=== PATIENT | female | born 1975 | race Caucasian/White ===

== ENCOUNTER → 2018-01-22 12:38 | Outpatient (CLI) | payer OTHER, SELFPAY ==
--- NOTE | 2018-01-22 | DI.MRI.S_ITS ---
PROCEDURE: MR BRAIN (IAC) WWO CON INDICATIONS: LEFT SENSORINEURAL HEARING LOSS/TINNITUS TECHNIQUE: Noncontrast sagittal T1 spin echo, axial FLAIR, axial gradient echo, axial diffusion and ADC through the brain. Axial thin-slice 3D CISS, coronal TruFISP, axial T1 spin echo with fat saturation through the internal auditory canals. After the administration of contrast, thin slice axial and coronal T1 spin echo with fat saturation through the internal auditory canals, and axial T1 spin echo with fat saturation through the brain. COMPARISON: None. FINDINGS: Image quality: Excellent. Cerebellopontine angles: No cerebellopontine angle masses. The inner ear structures appear normally formed. No suspicious enhancement in the internal auditory canal or along the courses of the 7th and 8th cranial nerves. No caden vascular loops are seen into the internal auditory canals. CSF spaces: Ventricles are normal in size and shape. No extra-axial fluid collections. Basal cisterns are patent. Brain: No intracranial bleeds or mass effects. Martinez-white matter interface is intact. No abnormal intracranial enhancement. Diffusion weighted images demonstrate no acute ischemic insults. Brainstem appears normal. Normal intravascular flow voids are present. Skull and face: Calvarial marrow signal is normal. Orbits appear normal. Sinuses: Mild mucosal thickening can be seen involving the right maxillary sinus. Minimal to mild mucosal thickening is seen elsewhere within the paranasal sinuses. No abnormal fluid is seen within the mastoid air cells or within the middle ear cavities. IMPRESSION: No significant abnormality is seen. Specifically, no masses or abnormal enhancement are seen within the cerebellopontine angle cisterns or within the internal auditory canals. Dictated by: Wiliam Li M.D. on 01/22/2018 at 13:05 Approved by: Wiliam Li M.D. on 01/22/2018 at 13:07
== END ==
PROVIDERS: Family Provider Family Medicine; PCP Family Medicine; Visit Provider Otolaryngology Facial Plastic Surgery
DX: H90.5 Unspecified sensorineural hearing loss (principal); H93.12 Tinnitus, left ear
CPT/HCPCS: 70553

== ENCOUNTER → 2018-06-20 12:25 | Outpatient (CLI) | payer OTHER, SELFPAY ==
--- NOTE | 2018-06-20 | DI.MG.S_ITS ---
BILATERAL DIGITAL SCREENING MAMMOGRAM 3D/2D WITH CAD: 06/20/2018 CLINICAL: Routine screening. Family history of breast cancer. Comparison is made to exams dated: 03/18/2017 mammogram, 02/16/2016 mammogram, and 01/24/2015 mammogram - [facility]. The tissue of both breasts is heterogeneously dense. This may lower the sensitivity of mammography. Current study was also evaluated with a Computer Aided Detection (CAD) system. There is 0.8 cm oval equal density focal asymmetry with a circumscribed margin in the left breast at 6 o'clock middle depth. No other significant masses, calcifications, or other findings are seen in either breast. IMPRESSION: INCOMPLETE: NEEDS ADDITIONAL IMAGING EVALUATION The 0.8 cm oval equal density focal asymmetry in the left breast is indeterminate. Mediolateral and spot compression views as well as additional views with possible ultrasound are recommended. This exam was interpreted at Station ID: [id number]. NOTE: For mammograms, a report in lay terms will be sent to the patient. Approximately 15% of breast malignancies will not be visualized mammographically. In the management of a palpable breast mass, a negative mammogram must not discourage biopsy of a clinically suspicious lesion. Electronically Signed By: Sivakumar vallejo/zachariah:06/20/2018 14:52:27 copy to: Wagner Brennan letter sent: Additional Imaging Needed ACR BI-RADS Category 0: Incomplete [id number]
== END ==
PROVIDERS: Family Provider Nurse Practitioner Family; PCP Family Medicine; Visit Provider Family Medicine
DX: Z12.31 Encounter for screening mammogram for malignant neoplasm of breast (principal); Z80.3 Family history of malignant neoplasm of breast
CPT/HCPCS: 77063; 77067

== ENCOUNTER → 2018-07-23 12:45 | Outpatient (CLI) | payer OTHER, SELFPAY ==
--- NOTE | 2018-07-23 | DI.MG.S_ITS ---
UNILATERAL LEFT DIGITAL DIAGNOSTIC MAMMOGRAM 3D/2D WITH ADDITIONAL VIEWS: 07/23/2018 CLINICAL: Additional evaluation requested from prior study. Comparison is made to exams dated: 06/20/2018 mammogram, 03/18/2017 mammogram, and 02/16/2016 mammogram - [facility]. The tissue of left breast is heterogeneously dense. This may lower the sensitivity of mammography. Previously identified 0.8 cm oval equal density focal asymmetry with a circumscribed margin in the left breast at 6 o'clock middle depth on comparison screening mammograms persists with additional views. There is a stable 0.5 cm oval equal density mass in the upper outer left breast at anterior depth that is stable dating back to comparison mammogram of 02/16/2016. No other significant masses, calcifications, or other findings are seen in the breast. IMPRESSION: INCOMPLETE: NEEDS ADDITIONAL IMAGING EVALUATION Previously identified 0.8 cm oval equal density focal asymmetry with a circumscribed margin in the left breast at 6 o'clock middle depth on comparison screening mammograms persists with additional views. A targeted ultrasound is recommended for further evaluation, and will be performed immediately following this exam. This exam was interpreted at Station ID: [id number]. NOTE: For mammograms, a report in lay terms will be sent to the patient. Approximately 15% of breast malignancies will not be visualized mammographically. In the management of a palpable breast mass, a negative mammogram must not discourage biopsy of a clinically suspicious lesion. Electronically Signed By: Carlos Savage M.D. ecl/:07/23/2018 13:24:00 copy to: Lena Mcfadden letter sent: Additional Imaging Needed ACR BI-RADS Category 0: Incomplete [id number]
--- NOTE | 2018-07-23 | DI.US.S_ITS ---
LIMITED ULTRASOUND OF LEFT BREAST: 07/23/2018 CLINICAL: Patient returns today to evaluate a density in the left breast. Comparison is made to exams dated: 07/23/2018 mammogram, 06/20/2018 mammogram, 03/18/2017 mammogram, 02/16/2016 mammogram, 02/08/2015 ultrasound, and 02/08/2015 mammogram - [facility]. Real-time and Doppler ultrasound of the left breast 4-5 o'clock region were performed. Martinez scale images of the real-time examination were reviewed. There is 0.7 cm x 0.5 cm x 0.4 cm taller than wide oval mass with a circumscribed margin in the left breast at 4:30 position 4 cm from the nipple. This oval mass is hypoechoic. Color flow imaging demonstrates that there is no vascularity present. IMPRESSION: SUSPICIOUS OF MALIGNANCY The 0.7 cm x 0.5 cm x 0.4 cm taller than wide oval mass in the left breast is at a low suspicion for malignancy. An ultrasound guided biopsy is recommended. These results and recommendations were discussed with the patient at the time of the exam by the [facility] Radiologist Dr. Virgil Todd in person. This exam was interpreted at Station ID: [id number]. Electronically Signed By: Carlos Savage M.D. ecl/:07/24/2018 08:57:31 copy to: Lena Mcfadden letter sent: Biopsy Required Ultrasound BI-RADS: 4a Suspicious abnormality - low suspicion for malignancy
== END ==
PROVIDERS: Family Provider Nurse Practitioner Family; PCP Family Medicine; Visit Provider Family Medicine
DX: R92.8 Other abnormal and inconclusive findings on diagnostic imaging of breast (principal); N63.21 Unspecified lump in the left breast, upper outer quadrant; N63.23 Unspecified lump in the left breast, lower outer quadrant
CPT/HCPCS: 76642; 77065; G0279

== ENCOUNTER → 2018-08-27 12:39 | Outpatient (CLI) | payer OTHER, SELFPAY ==
--- NOTE | 2018-08-27 | DI.MG.S_ITS ---
UNILATERAL LEFT DIGITAL DIAGNOSTIC MAMMOGRAM POST-NEEDLE BIOPSY: 08/27/2018 CLINICAL: Left breast mass. Comparison is made to exams dated: 07/23/2018 mammogram, 06/20/2018 mammogram, and 03/18/2017 mammogram - [facility]. The tissue of left breast is heterogeneously dense. This may lower the sensitivity of mammography. There is a marker clip in the appropriate position in the left breast at 4 o'clock posterior depth. This marker clip placement is at the biopsy site. IMPRESSION: POST PROCEDURE MAMMOGRAM FOR MARKER PLACEMENT There was a successful marker clip placement in the left breast posterior depth. This exam was interpreted at Station ID: [id number]. NOTE: For mammograms, a report in lay terms will be sent to the patient. Approximately 15% of breast malignancies will not be visualized mammographically. In the management of a palpable breast mass, a negative mammogram must not discourage biopsy of a clinically suspicious lesion. Electronically Signed By: Jaylon Weinstein jl/:08/27/2018 15:02:54 copy to: Lena Mcfadden ACR BI-RADS Category Post-procedure mammogram for marker placement
--- NOTE | 2018-08-27 | DI.US.S_ITS ---
ULTRASOUND GUIDED BIOPSY LEFT BREAST USING VACUUM DEVICE WITH MARKING DEVICE INSERTED AND POST DIGITAL MAMMOGRAPHIC IMAGIN08/27/2018 CLINICAL: Left breast mass. PATIENT CONSENT: Risks (minor bleeding, infection, vasovagal reaction and repeat procedure), benefits and alternatives were explained to the patient and written informed consent was obtained. Correlation is made to exams dated: 07/23/2018 ultrasound, 07/23/2018 mammogram, and 06/20/2018 mammogram - [facility]. An ultrasound guided biopsy using real-time ultrasound was performed for the mass located in the left breast at 4:30 position 4 cm from the nipple. The skin was prepped in the usual manner. The abnormality was approached from the lateral aspect. A biopsy needle was placed adjacent to the abnormality under ultrasound guidance. Once the needle was documented to be in the correct location, a specimen was obtained using the Mammotome biopsy system. A clip was inserted into the biopsy cavity. Post procedure digital mammographic imaging was obtained. The specimen was sent to the laboratory for pathological analysis. IMPRESSION: ULTRASOUND GUIDED BIOPSY BENIGN Ultrasound guided biopsy of the mass in the left breast at 4:30 position 4 cm from the nipple was successful with no apparent post procedure complications. Final pathology per pathollogist Dr. Rosa Isela Luis identified benign breast tissue with changes suggestive of benign cyst wall/lining, negative for atypical hyperplasia, in situ, or invasive carcinoma. These results are concordant with imaging. A follow-up ultrasound in 6 months is recommended. These results will be communicated to the patient's referring provider. This exam was interpreted at Station ID: [id number]. Jaylon johnson,[facility]/:09/10/2018 09:23:16 copy to: Lena Mcfadden
--- NOTE | 2018-08-27 | PATH_ITS ---
[facility] Accession Number: [id number] . 01 Material submitted: . LEFT BREAST MASS . 01 Clinical history: . A: LEFT BREAST MASS 4:30 O'CLOCK 4CM FROM NIPPLE . 02 Diagnosis: Left Breast, 4:30 o'clock, 4 cm from Nipple, Core Needle Biopsies: Benign breast tissue with changes suggestive of benign cyst wall/lining. Negative for atypical hyperplasia, in situ or invasive carcinoma. MRV/08/29/2018 . 02 Comment: As part of routine quality reviewer, Dr. Rosales also reviewed this case and agrees with the diagnosis. Additional deeper levels were examined. . 02 Electronically signed: . Rosa Isela Luis MD, Pathologist NPI- [id number] . 01 Gross description: . Received one formalin-filled container labeled with the patient's name and designated left breast mass 4:30 o'clock 4 cm from nipple. The specimen is received with a plastic filter in the container, sample loose in container and consists of two yellow-singleton, rough, partial cylindrical-shaped portions of tissue with an average diameter of 0.2-0.3 cm and range in length from 0.9 cm to 1.6 cm. The specimen is entirely submitted in one cassette. Collection date: 08/27/2018. Collection time: 13:50 per container. Total fixation time: 12 hours, up to 24. ([id number]) /FRR . 02 Pathologist provided ICD-10: N63.20 . 02 CPT . 981997 Performed at: 01 [facility] [address] [place] [address], [place], [place] [id number] MD Sivakumar Alatorre MD Phone: [phone] Performed at: 02 [facility] [address] [place] [id number] MD Rosa Isela Luis MD Phone: [phone]
== END ==
PROVIDERS: Family Provider Nurse Practitioner Family; PCP Family Medicine; Visit Provider Family Medicine
DX: N63.23 Unspecified lump in the left breast, lower outer quadrant (principal)
CPT/HCPCS: 19083; 77065

== ENCOUNTER → 2018-12-10 12:07 | Outpatient (CLI) | payer OTHER, SELFPAY ==
--- NOTE | 2018-12-10 | DI.US.S_ITS ---
PROCEDURE: US PELVIC COMPLETE INDICATIONS: DYSFUNCTIONAL UTERINE BLEEDING TECHNIQUE: Real-time scanning was performed of the pelvic organs, with image documentation. Additional endovaginal scanning was necessary due to incomplete visualization of the adnexal and endometrial structures by transabdominal scanning. COMPARISON: None. FINDINGS: Transabdominal scanning: Limited scanning through the kidneys shows no hydronephrosis. No pathologic free abdominal or pelvic fluid. Endovaginal scanning: Uterus: Uterus is normal in size at 7.9 x 4.3 x 5.8 cm. The endometrium measures 16 mm in combined thickness. Ovaries: The right ovary measures 1.8 by 1 by 2.1 cm. immediately posterior to the right ovary, there is a hypoechoic nonvascular structure that measures 2 x 1.1 x 3 cm. The left ovary is not seen. No left adnexal masses. IMPRESSION: The endometrial stripe measures 16 mm, which is near the upper limits of normal. There is a 3 cm hypoechoic structure seen adjacent to the right ovary. Differential diagnosis includes an adnexal cyst. A process related to the fallopian tube, including pyosalpinx/hydrosalpinx is also possible. Further evaluation is suggested, either with a pelvic CT, a gynecological protocol MRI (assuming that there is no contraindication), or a followup ultrasound in 6 weeks, depending upon clinical suspicion. Dictated by: Wiliam Li M.D. on 12/10/2018 at 11:59 Approved by: Wiliam Li M.D. on 12/10/2018 at 12:02
== END ==
PROVIDERS: Family Provider Nurse Practitioner Family; PCP Family Medicine; Visit Provider Nurse Practitioner Family
DX: N93.8 Other specified abnormal uterine and vaginal bleeding (principal)
CPT/HCPCS: 76830; 76856

== ENCOUNTER → 2018-12-12 10:57 | Outpatient (CLI) | payer OTHER, SELFPAY ==
--- NOTE | 2018-12-12 | DI.CT.S_ITS ---
PROCEDURE: CT PELVIS W CON INDICATIONS: PELVIC MASS FOUND ON US. Uterine bleeding. Question right hydrosalpinx on ultrasound. TECHNIQUE: After the administration of oral contrast and intravenous contrast, 5 mm thick sections acquired from the iliac crests to the symphysis. 5 mm thick coronal and sagittal reformats were acquired. For radiation dose reduction, the following was used: automated exposure control, adjustment of mA and/or kV according to patient size. COMPARISON: [facility], [place], US PELVIC COMPLETE, 12/10/2018, 12:19. FINDINGS: Image quality: Excellent. Peritoneum and bowel: Contrast enhanced bowel loops demonstrate normal wall thickness and caliber. No free fluid or air. No abscess cavity.4 Genitourinary: Bladder wall thickness is normal. Nodes and vessels: No iliac, pelvic, or inguinal adenopathy. Iliac vessels demonstrate normal size and enhancement. Bones: No suspicious bony lesions. Miscellaneous: No inguinal hernias. Uterus is unremarkable. No adnexal masses. No hydrosalpinx identified. IMPRESSION: Unremarkable CT pelvis with contrast. Dictated by: Dominic Soriano M.D. on 12/12/2018 at 12:23 Approved by: Dominic Soriano M.D. on 12/12/2018 at 12:27
== END ==
PROVIDERS: Family Provider Nurse Practitioner Family; PCP Family Medicine; Visit Provider Nurse Practitioner Family
DX: N93.9 Abnormal uterine and vaginal bleeding, unspecified (principal); R19.00 Intra-abdominal and pelvic swelling, mass and lump, unspecified site
CPT/HCPCS: 72193; Q9967

== ENCOUNTER → 2019-02-18 12:05 | Outpatient (CLI) | payer OTHER, SELFPAY ==
--- NOTE | 2019-02-18 | DI.US.S_ITS ---
ULTRASOUND OF LEFT BREAST: 02/18/2019 CLINICAL: 6 month follow-up biopsy. Comparison is made to exams dated: 08/27/2018 ultrasound biopsy, 08/27/2018 mammogram, 07/23/2018 ultrasound, 07/23/2018 mammogram, 06/20/2018 mammogram, and 03/18/2017 mammogram - [facility]. Real-time ultrasound of the left breast was performed on the areas of interest. Martinez scale images of the real-time examination were reviewed. The oval mass with a circumscribed margin in the left breast at 4 o'clock posterior depth 4 cm from the nipple is no longer seen. A biopsy clip is present. IMPRESSION: BENIGN There is no sonographic evidence of malignancy. A 1 year screening mammogram is recommended. This exam was interpreted at Station ID: [id number]. Electronically Signed By: Yen Gabriel M.D. lk/:02/19/2019 14:17:05 copy to: Lena Mcfadden letter sent: Normal Exam Ultrasound BI-RADS: 2 Benign
== END ==
PROVIDERS: Family Provider Nurse Practitioner Family; PCP Family Medicine; Visit Provider Nurse Practitioner Family
DX: R92.8 Other abnormal and inconclusive findings on diagnostic imaging of breast (principal)
CPT/HCPCS: 76642

== ENCOUNTER 2019-06-22 12:22 | Day surgery (SDC) | payer OTHER, SELFPAY ==
[2019-06-22] VITALS (14 sets, daily range): BP systolic 93–145; BP diastolic 45–85; PULSE 56–81; RESP 12–21; TEMP 36.1–37.4; O2SAT 95–100; BMI 25.4
--- NOTE | 2019-06-22 | PATH_ITS ---
[facility] Accession Number: [id number] . 01 Material submitted: . uterus - UTERUS AND BILATERAL FALLOPIAN TUBES . 02 Diagnosis: Uterus and Bilateral Fallopian Tubes, Hysterectomy and Bilateral Salpingectomy (Morcellated Specimen, Aggregate Weight 102 grams): Weakly proliferative endometrium; negative for glandular hyperplasia, cytologic atypia, and malignancy. Myometrium with benign glandular elements, favor involvement by adenomyosis. Please see comment. Fimbriated fallopian tube with no significant histomorphologic abnormality. Nonfimbriated fallopian tube with no significant histomorphologic abnormality. MRV 06/26/2019 1408 Local . 02 Comment: There are benign glandular structures present within the myometrium. The depth of extension is difficult to assess in the separate and possibly tangential fragments and the presence of an adenomyoma cannot be completely excluded. There is no evidence of atypia or malignancy. . 02 Electronically signed: . Annie Rosales MD, Pathologist NPI- [id number] . 01 Gross description: . Received in formalin, labeled uterus and bilateral fallopian tubes, is a morcellated uterus (102 grams, 9.5 x 9.0 x 4.2 cm in aggregate), a fimbriated fallopian tube (length-4.5 cm, diameter-0.4 cm), and a non-fimbriated fallopian tube (length-2.5 cm, diameter-0.5 cm). The cervix and ovaries are absent. The specimen cannot be oriented and the endometrium and myometrium cannot be grossly measured. The parenchyma is arciniega with multiple focally white whorled areas with no definitive nodules identified. The serosa is arciniega smooth and shiny. The fallopian tubes have singleton-purple smooth and shiny serosa and arciniega focally dilated lumens. Section code: (A1-A3) parenchyma, automotive sales representative; (A4) fimbriated fallopian tube, automotive sales representative serial sections; (A5) fimbria, bivalved, entirely submitted; (A6) nonfimbriated fallopian tube, automotive sales representative serial sections. ([id number]) /[facility] 06/24/2019 1641 Local . 02 Pathologist provided ICD-10: N80.0 . 02 CPT . 948640 Performed at: 01 [facility] [address] [id number] MD Sivakumar Alatorre MD Phone: [phone] Performed at: 02 [facility] [address] [address] [place], [place] [id number] MD Rosa Isela Luis MD Phone: [phone]
[2019-06-22] MEDS: LACTATED RINGERS 1,000 ML 100 ML IV ×2 (12:52→17:59)
--- NOTE | 2019-06-22 13:20 | PM.PREOP ---
Pre-operative Note Interval Note History & Physical reviewed/Exam performed by Physician: Yes Changes to H&P: No H&P completed within 30 days and has changed as indicated here:: see 06/17/19 out patient visit
[2019-06-22] MEDS: CEFAZOLIN 2 GM/100 ML FROZ.PIGGY IV (14:40)
--- NOTE | 2019-06-22 15:11 | SUR.OPER ---
Lithotomy on padded OR bed. New Alluwe Pad Positioner under torso. Head on pillow, arms padded and tucked at sides. Legs secured in padded yellow fins stirrups.
[2019-06-22] MEDS: ROPIVACAINE 0.2% PF 2 MG/ML 10ML AMP 20 ML INJ (15:25)
[2019-06-22] MEDS: BUPIVACAINE 0.5% W/ EPI (PF) VIAL 30 ML INJ (15:25)
--- NOTE | 2019-06-22 16:07 | P.OP_ITS ---
Operative Date/Time/Diagnoses Date of procedure: 06/22/19 Time of procedure: 16:07 Pre-op diagnosis: Dysmenorrhea and menorrhagia Post-op diagnosis: same Procedure & Clinicians Procedure: Laparoscopic supracervical hysterectomy with bilateral salpingectomies Same procedure as scheduled: Yes Indications: Menorrhagia and dysmenorrhea Surgeon: Danica Sinclair Principal Automation Engineer: Elver Delgadillo Yes if Unassisted: No Anesthesia Type: General Operative Notes Findings: Normal appearing uterus with some scarring from her prior section. Bilateral tubal ligation with swelling of the proximal fallopian tube segment likely the cause of the patient's pain. Normal ovaries bilaterally. No internal hernias. No endometriosis. Normal appearing bowel surface and liver edge. Closure Type: primary Specimen(s): other (Uterus above the level of the bladder and bilateral fallopian tubes) Estimated Blood Loss (mL): 25 Blood products transfused: none Procedure in detail: Patient is brought to the operating room where she underwe nt general anesthesia and placed in low yellowfin stirrups. She was prepped and draped in the usual sterile fashion. A check list was reviewed with the staff in the room prior to beginning of the case. Patient had pulsatile stockings in place and functional. 2 g of Ancef were in prior to beginning of the case.. A Sutherland catheter was placed. A single-tooth tenaculum was placed on the anterior lip of the cervix and the cervix dilated to a #6 Hegar dilator. The uterine manipulator was placed through the cervix into the uterus with the balloon inflated with 3 mL of air. The area of the umbilical incision and the 5 mm right and left lower quadrant incisions were injected with Marcaine. An incision was made with scalpel. The verries needle was placed into the abdomen and confirmed in the appropriate place with withdrawal on a syringe and then free flow of fluid down through the needle. The abdomen was insufflated with CO2. The needle was removed and a 5 mm trocar placed without difficulty. There did not appear to be any damage is placement of the trocar. The right and left lower quadrant incisions were made with the scalpel and the trochars placed without damage to internal structures. The PK forceps were used to cauterize the mesosalpinx followed by the round ligaments on both sides. Sequential bites were taken down the broad ligaments. The uterine arteries were cauterized. An incision was made above the level bladder pushing the bladder away from the cervix. The BAILEE loop was placed around the uterus and the uterus was amputated above the level of the bladder. Bleeding was controlled with the PK forceps. The PK forceps were used to cauterize in the endocervical canal. A supracervical incision was made and an 11 mm port placed. A 15 mm Endo Catch bag was placed in the abdomen. The uterus, tubes and ovaries were placed in the bag and brought up through the suprapubic port site. The Nasim O was placed. The uterus was hand morselized. The abdomen was reinsufflated and adequate hemostasis was noted. The trochars were removed and the CO2 allowed escape from the abdomen. The fascia layer of the suprapubic site was repaired with 0 Polysorb suture. Skin was closed with 4-0 Monocryl suture at the suprapubic site and the other 3 sites. The patient went to recovery room in good condition. Counts of instruments and sponges were correct. Complications: none Post-operative Condition: stable Disposition: observation Plan for aftercare: Likely home in morning if patient is stable
[2019-06-22] MEDS: HYDROMORPHONE 2 MG INJ 0.5 MG IV ×3 (16:09→16:29)
[2019-06-22] MEDS: OXYCODONE/ACETAMINOPHEN 5/325 TABLET 1 TAB PO (16:28)
--- NOTE | 2019-06-22 16:41 | SUR.PHASEI ---
Assumed care. VS stable. Reported pain 4/10 in low abd.
--- NOTE | 2019-06-22 16:56 | SUR.PHASEI ---
Report called to Nessa
--- NOTE | 2019-06-22 17:11 | SUR.PHASEI ---
Pt transferred to the floor with belongings bag. VS stable. Sero-sang fluid to mid abd drsgs, others clean and dry. IV saline locked. Report given to Nessa.
[2019-06-22] MEDS: KETOROLAC 30 MG/ML VIAL IV (17:59)
[2019-06-22] MEDS: HYDROCODONE/ACET 5/325 TABLET 2 TAB PO (20:29)
--- NOTE | 2019-06-22 22:13 | PC.NURSE ---
Pt arrived to in stable condition. Alert/oriented. IV LR @ 100cc/hr into rihgt hand via pump w/om incidence. Four small dsg across abd. unbilicus and one below w/shadow drainage, other two CDI SCD on, Med @ 1810 w/toradol w/good relief Med 2030 w/ vicodin w/good relief. 1PA to BR. Stable post op course. Call light w/in reach, bed alarm on for pt sfety. Pt calls appropriately for assistance. Continue w/plan of care.
[2019-06-23] MEDS: HYDROCODONE/ACET 5/325 TABLET 2 TAB PO ×2 (03:00→09:09)
[2019-06-23] MEDS: LACTATED RINGERS 1,000 ML 100 ML IV (03:02)
[2019-06-23 04:10] VITALS: BP 129/73; PULSE 51; RESP 16; TEMP 36.4; O2SAT 97
--- NOTE | 2019-06-23 05:26 | PC.NURSE ---
Pt. VSS, lung sounds clear bilaterally. Pt has had some pain 3-4/10, 2 tabs norco given Q4. Pt denies nausea. SCD's are applied. Pt has LR&100 ml/hr running. Call light is in within reach.
[2019-06-23] MEDS: LEVOTHYROXINE 25 MCG TABLET PO (05:55)
[2019-06-23 08:00] VITALS: BP 122/60; PULSE 64; RESP 14; TEMP 36.9; O2SAT 98
--- NOTE | 2019-06-23 08:40 | PM.DS.1 ---
History of Present Illness History of Present Illness Date Patient Seen: 06/23/19 Time Patient Seen: 08:40 Chief complaint: [id number] [facility] *OPB* Narrative: Patient is status post laparoscopic supracervical hysterectomy with bilateral salpingectomy. Patient has appropriate amount of discomfort postop. She is urinating well. She is not nauseated. She is ambulatory. Discharge Providers Provider Discharge Date: 06/23/19 Primary care physician: BOGDAN Yu Discharge provider: Danica Sinclair MD Summary Hospital Course Discharge Diagnosis: Patient with dysmenorrhea and menorrhagia Hospital Course: Patient underwent a laparoscopic supracervical hysterectomy with bilateral salpingectomy. She is doing well postoperative. Status at Discharge Cognitive/behavioral status at discharge: oriented Functional status at discharge: independent ambulation Overall status at discharge: patient is progressing back to baseline Time Spent with Patient Time spent: Less than 30 minutes Exam Vital Signs (past 8 hours): - 06/23/19 04:10 06/23/19 08:00 Temperature 97.6 F 98.5 F Pulse Rate 51 L 64 Respiratory Rate 16 14 Blood Pressure 129/73 122/60 Pulse Oximetry 97 98 Oxygen Delivery Method Room Air Oxygen Flow Rate 0 Narrative Exam Narrative: Abdomen is soft, with minimal tenderness. Her dressings show some old blood but no active bleeding. Extremities without edema and nontender. Discharge Plan Discharge Plan Patient Disposition: Home Discharge Med Rec/Prescriptions Prescriptions: Continued levothyroxine 25 mcg capsule 25 mcg PO DAILY RF: 0 hydrocodone-acetaminophen 5-325 mg tablet 2 tab PO Q4-6H PRN (Reason: pain) Qty: 30 RF: 0 Discontinued norgestimate-ethinyl estradiol 0.25-35 mg-mcg tablet 1 tab PO DAILY RF: 0 Follow up/Referrals: Danica Sinclair MD [Physician] - As previously scheduled (Patient is postop appointment is on 07/01/2019 at 3:45 p.m.) Discharge Orders: Discharge (Order); Ordered 06/23/19 Ordered By: Danica Sinclair Provider Discharge Instructions Diet: Regular Activity: Light activity for 1 week Skin/Wound/Dressing Care Report to your healthcare provider any signs of infection, such as:: chills, fever, increased pain and unusual redness Dressing: May remove Band-Aids later today, leave Steri-Strips in place may get wet just pat dry Discharge Data Primary Care Provider: Lena Mcfadden Attending Provider: Danica Sinclair Quality VTE Deep Vein Thrombosis/Pulmonary Embolism Present on Admission: No
--- NOTE | 2019-06-23 09:33 | PC.NURSE ---
0935 Pt to dc to home today, dc papers given to Pt/signed. Pt had PO pain meds this am w/good relief of post op site pain.
--- NOTE | 2019-06-23 13:55 | CM.DANOTE ---
DCP/Assessment: Reviewed chart. Patient admitted [facility] for elective hysterectomy performed on 06-23-19. Patient admitted as SDC. Surgery performed by Dr. Sinclair. Primary payor is 1)[employer]. PCP listed is Lena Mcfadden. Attempted to meet with patient this AM. Patient had already been discharged with no identified d/c planning needs. P: Home today. 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 No History Provided By Patient,Medical Record Prior Living Arrangements House Household Members spouse,children Type of transporation used prior to Drives own vehicle admit Independent with ADL's Yes Is patient alert and oriented? 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
== END 2019-06-23 11:05 | disposition home or self-care (01) ==
LOC: OR 12:24 → AC 12:25
PROVIDERS: PCP Nurse Practitioner Family; Visit Provider Specialist
PROC: 0UT94ZL Resection of Uterus, Supracervical, Percutaneous Endoscopic Approach (ICD-10-PCS; CPT 58541; principal; 2019-06-22 13:45)
DX: N80.0 Endometriosis of uterus (principal)
CPT/HCPCS: 58541; J0690; J1100; J1170; J1885; J2250; J2405; J2704; J2710; J2795; J3010

== ENCOUNTER → 2020-04-06 15:48 | Outpatient (CLI) | payer OTHER, SELFPAY ==
[2019-06-22 20:51] VITALS: BMI 25.4
--- NOTE | 2020-04-06 15:50 | DI.MG.S_ITS ---
BILATERAL DIGITAL SCREENING MAMMOGRAM 3D/2D WITH CAD: 04/06/2020 CLINICAL: Routine screening. Family history of breast cancer. Comparison is made to exams dated: 08/27/2018 mammogram, 07/23/2018 mammogram, 06/20/2018 mammogram, and 03/18/2017 mammogram - [facility]. The tissue of both breasts is heterogeneously dense. This may lower the sensitivity of mammography. Current study was also evaluated with a Computer Aided Detection (CAD) system. No significant masses, calcifications, or other findings are seen in either breast. There has been no significant interval change. IMPRESSION: NEGATIVE There is no mammographic evidence of malignancy. A 1 year screening mammogram is recommended. This exam was interpreted at Station ID: [id number]. NOTE: For mammograms, a report in lay terms will be sent to the patient. Approximately 15% of breast malignancies will not be visualized mammographically. In the management of a palpable breast mass, a negative mammogram must not discourage biopsy of a clinically suspicious lesion. Electronically Signed By: Curt Del Real M.D., jr/zachariah:04/06/2020 16:47:30 copy to: Lena Mcfadden letter sent: Normal Exam ACR BI-RADS Category 1: Negative 3341F
== END ==
PROVIDERS: PCP Nurse Practitioner Family; Referring Provider Student in an Organized Health Care Education/Training Program; Visit Provider Student in an Organized Health Care Education/Training Program
DX: Z12.31 Encounter for screening mammogram for malignant neoplasm of breast (principal); Z80.3 Family history of malignant neoplasm of breast
CPT/HCPCS: 77063; 77067

== ENCOUNTER → 2020-09-14 16:23 | Outpatient (CLI) | payer OTHER, SELFPAY ==
[2019-06-22 20:51] VITALS: BMI 25.4
== END ==
PROVIDERS: PCP Nurse Practitioner Family; Visit Provider Physician Assistant
DX: N34.3 Urethral syndrome, unspecified (principal)
CPT/HCPCS: 87086

== ENCOUNTER 2021-01-31 03:43 | Emergency (ER) | payer OTHER, SELFPAY ==
[2019-06-22 20:51] VITALS: BMI 25.4
[2021-01-31 03:58] VITALS: BP 122/72; PULSE 71; RESP 20; TEMP 36.8; O2SAT 100; BMI 23.6
--- NOTE | 2021-01-31 04:02 | ED.GENADULT ---
HPI - General Adult <Selena Celaya MD - Last Filed: 02/10/21 15:11> General Chief complaint: GI Bleed Stated complaint: bad hemorrhoids/blockage Time Seen by Provider: 01/31/21 04:01 History of Present Illness HPI narrative: 45-year-old woman with a history of hypothyroidism and hyperlipidemia presents with severe rectal pain. It has been increasing over the last 3 days in severe enough that she has been afraid to have a bowel movement. She notes that she has had hemorrhoids ever since she had twins a number of years ago. A typically she simply deals with it but does try to take Metamucil to keep her stool soft and will occasionally use [id number] preparations for hemorrhoidal pain. She notes no fevers, vomiting, headaches or upper abdominal pain. She also notes that she has been under quite a bit of stress with a [id number] who currently is on hospice and a son with multiple knee recent orthopedic issues. Related Data Home Medications Medication Instructions Recorded Confirmed levothyroxine 25 mcg capsule 25 mcg PO DAILY 02/11/19 09/14/20 atovstatin PO 09/14/20 09/14/20 Previous Rx's Medication Instructions Recorded ibuprofen 800 mg PO Q8H PRN #30 tab 01/31/21 Allergies Allergy/AdvReac Type Severity Reaction Status Date / Time INGREDIENT: NO KNOWN - NO Allergy Unknown Uncoded 09/14/20 16:32 KNOWN DRUG ALLERGY Review of Systems <Selena Celaya MD - Last Filed: 02/10/21 15:11> Review of Systems Narrative: Remainder of complete review of systems is otherwise unremarkable except for that included in the HPI. Patient History <Selena Celaya MD - Last Filed: 02/10/21 15:11> Medical History Anemia (~1996) Chicken pox Fractures UTI (urinary tract infection) Surgical History Anesthesia History of delivery (~05/2006) History of hysterectomy for benign disease (~06/2019) History of lumpectomy (~08/2010) Family History Father Cancer Social History household members: spouse and children Smoking Status: Former smoker Smoking Status: Former smoker Substance Use Type: does not use Exam <Selena Celaya MD - Last Filed: 02/10/21 15:11> Narrative Exam Narrative: General: Healthy appearing, significant distress, having difficulty sitting or standing because of perirectal pain. Able to give a complete and coherent history. Well-nourished well-developed HEENT: Moist mucous membranes, normal sclera with reactive pupils, Respiratory: Lungs are clear to auscultation, no wheezing no rales no rhonchi. Full and symmetrical air movement Cardiac: Regular rate and rhythm no murmurs no bruits Abdomen: Soft, nontender, good bowel tones, no flank pain Rectal: minor external hemrrhoidal tags. No obvious abscess ro cellulits, no perirectal fissure, significant anal sphincter spasm with internal exam and no significant thrombosed or internal hemorrhoids appreciated. There is a minor amount of red blood on my glove after the internal exam. Skin: Warm and dry, no rashes Neurologic: Grossly neurologically intact with no obvious asymmetries or abnormalities Extremities: No trauma, well perfused Psych: Cooperative, appropriate insight and affect Initial Vital Signs Initial Vital Signs: Vital Signs Temperature 98.2 F 01/31/21 03:58 Pulse Rate 71 01/31/21 03:58 Respiratory Rate 20 01/31/21 03:58 Blood Pressure 122/72 01/31/21 03:58 Pulse Oximetry 100 01/31/21 03:58 <Shane Brumfield DO - Last Filed: 01/31/21 07:26> Initial Vital Signs Initial Vital Signs: Vital Signs Temperature 98.2 F 01/31/21 03:58 Pulse Rate 71 01/31/21 03:58 Respiratory Rate 20 01/31/21 03:58 Blood Pressure 122/72 01/31/21 03:58 Pulse Oximetry 100 01/31/21 03:58 Course <Selena Celaya MD - Last Filed: 02/10/21 15:11> Orders Ordered: Discontinued Medications Hydromorphone HCl (Hydromorphone 0.5 Mg Inj) 0.5 mg IV Q15MIN PRN PRN Reason: Pain, Last Admin: 01/31/21 06:14 Dose: 0.5 mg Documented by: Admin: 01/31/21 05:17 Dose: 0.5 mg Documented by: Admin: 01/31/21 04:36 Dose: 0.5 mg Documented by: TUNG Hydromorphone HCl (Hydromorphone 0.5 Mg Inj) 0.5 mg IV Q15MIN PRN PRN Reason: Pain, Sodium Chloride (Normal Saline 0.9%) 1,000 mls @ 1,000 mls/hr IV BOLUS ONE Stop: 01/31/21 05:20 Last Infusion: 01/31/21 06:11 Dose: 0 mls/hr Documented by: Admin: 01/31/21 04:36 Dose: 1,000 mls/hr Documented by: TUNG Magnesium Citrate (Magnesium Citrate 300 Ml Solution) 300 ml PO NOW ONE Stop: 01/31/21 06:03 Last Admin: 01/31/21 06:14 Dose: 300 ml Documented by: TUNG Mineral Oil (Mineral Oil 1 Each Enema) 1 each LA NOW ONE Stop: 01/31/21 06:03 Last Admin: 01/31/21 06:14 Dose: 1 each Documented by: TUNG Vital Signs Vital signs: Vital Signs - 8 hr 01/31/21 03:58 Temperature 98.2 F Pulse Rate 71 Respiratory Rate 20 Blood Pressure 122/72 Pulse Oximetry 100 <Shane Brumfield DO - Last Filed: 01/31/21 07:26> Orders Ordered: Discontinued Medications Hydromorphone HCl (Hydromorphone 0.5 Mg Inj) 0.5 mg IV Q15MIN PRN PRN Reason: Pain, Last Admin: 01/31/21 06:14 Dose: 0.5 mg Documented by: Admin: 01/31/21 05:17 Dose: 0.5 mg Documented by: Admin: 01/31/21 04:36 Dose: 0.5 mg Documented by: TUNG Hydromorphone HCl (Hydromorphone 0.5 Mg Inj) 0.5 mg IV Q15MIN PRN PRN Reason: Pain, Sodium Chloride (Normal Saline 0.9%) 1,000 mls @ 1,000 mls/hr IV BOLUS ONE Stop: 01/31/21 05:20 Last Infusion: 01/31/21 06:11 Dose: 0 mls/hr Documented by: Admin: 01/31/21 04:36 Dose: 1,000 mls/hr Documented by: TUNG Magnesium Citrate (Magnesium Citrate 300 Ml Solution) 300 ml PO NOW ONE Stop: 01/31/21 06:03 Last Admin: 01/31/21 06:14 Dose: 300 ml Documented by: TUNG Mineral Oil (Mineral Oil 1 Each Enema) 1 each LA NOW ONE Stop: 01/31/21 06:03 Last Admin: 01/31/21 06:14 Dose: 1 each Documented by: TUNG Vital Signs Vital signs: Vital Signs - 8 hr 01/31/21 03:58 Temperature 98.2 F Pulse Rate 71 Respiratory Rate 20 Blood Pressure 122/72 Pulse Oximetry 100 Medical Decision Making <Selena Celaya MD - Last Filed: 02/10/21 15:11> Medical Records Medical records reviewed: Yes I reviewed the patient's medical records. Lab Data Lab results reviewed: Yes I reviewed the patient's lab results. Result diagrams: 01/31/21 04:28 01/31/21 04:28 Labs: Lab Results 01/31/21 01/31/21 01/31/21 Range/Units 04:28 04:28 04:50 WBC 6.4 (4.5-11.0) X10^3/uL RBC 3.88 L (4.0-5.2) X10^6/uL Hgb 12.7 (12.0-16.0) g/dL Hct 37.4 (36-46) % MCV 96.4 (80-100) fL MCH 32.6 (26-34) PG MCHC 33.9 (30-36) % RDW 13.0 (11.6-14.8) % Plt Count 168 (150-400) X10^3/uL Neut % (Auto) 63.4 (50-75) % Lymph % (Auto) 27.3 (25-40) % Clare % (Auto) 4.8 (3-14) % Eos % (Auto) 3.9 (2-4) % Baso % (Auto) 0.6 (0-2) % Neut # (Auto) 4100 (0135-0044) /uL Lymph # (Auto) 1700 (0883-5053) /uL Clare # (Auto) 300 (0-900) /uL Eos # (Auto) 200 (0-450) /uL Baso # (Auto) 0 (0-100) /uL Sodium 135 L (137-145) mmol/L Potassium 3.4 (3.4-5.1) mmol/L Chloride 104 (98-107) mmol/L Carbon Dioxide 25 (22-32) mmol/L BUN 4 L (7-17) mg/dL Creatinine 0.47 L (0.52-1.04) mg/dL Estimated GFR > 60.0 (>60) mL/min BUN/Creatinine Ratio 8.5 (6-22) Glucose 88 (70-100) mg/dL Calcium 9.2 (8.4-10.2) mg/dL Total Bilirubin 0.4 (0.2-1.3) mg/dL AST 94 H (14-36) IU/L ALT 66 H (<35) IU/L Alkaline Phosphatase 63 (38-126) U/L Total Protein 6.2 L (6.3-8.2) g/dL Albumin 3.7 (3.5-5.0) g/dL Globulin 2.5 (1.7-4.1) g/dL Albumin/Globulin Ratio 1.5 (1.0-2.8) Urine RBC 0-1/hpf (0-5/HPF) Urine WBC None seen (0-5/HPF) Ur Squamous Epith Cells 1-5 /hpf (0-5/HPF) Urine Bacteria Few (2-10) H (None) Ur Culture Indicated? Cult not indicated Urine Dip Bedside Urine Glucose Negative Bedside Urine Bilirubin - Negative Bedside Urine Ketone - Negative Urine Specific [place] 1.010 Bedside Urine Occult Blood +/- Bedside Urine pH 7.5 Bedside Urine Protein - Negative Bedside Urine Urobilinogen - Negative Bedside Urine Nitrite - Negative Bedside Urine Leukocytes - Negative Esterase Point of care testing: Urine Dip Bedside Urine Glucose Negative Bedside Urine Bilirubin - Negative Bedside Urine Ketone - Negative Urine Specific [place] 1.010 Bedside Urine Occult Blood +/- Bedside Urine pH 7.5 Bedside Urine Protein - Negative Bedside Urine Urobilinogen - Negative Bedside Urine Nitrite - Negative Bedside Urine Leukocytes - Negative Esterase <Shane Brumfield DO - Last Filed: 01/31/21 07:26> Lab Data Labs: Lab Results 01/31/21 01/31/21 01/31/21 Range/Units 04:28 04:28 04:50 WBC 6.4 (4.5-11.0) X10^3/uL RBC 3.88 L (4.0-5.2) X10^6/uL Hgb 12.7 (12.0-16.0) g/dL Hct 37.4 (36-46) % MCV 96.4 (80-100) fL MCH 32.6 (26-34) PG MCHC 33.9 (30-36) % RDW 13.0 (11.6-14.8) % Plt Count 168 (150-400) X10^3/uL Neut % (Auto) 63.4 (50-75) % Lymph % (Auto) 27.3 (25-40) % Clare % (Auto) 4.8 (3-14) % Eos % (Auto) 3.9 (2-4) % Baso % (Auto) 0.6 (0-2) % Neut # (Auto) 4100 (3875-4557) /uL Lymph # (Auto) 1700 (6726-1505) /uL Clare # (Auto) 300 (0-900) /uL Eos # (Auto) 200 (0-450) /uL Baso # (Auto) 0 (0-100) /uL Sodium 135 L (137-145) mmol/L Potassium 3.4 (3.4-5.1) mmol/L Chloride 104 (98-107) mmol/L Carbon Dioxide 25 (22-32) mmol/L BUN 4 L (7-17) mg/dL Creatinine 0.47 L (0.52-1.04) mg/dL Estimated GFR > 60.0 (>60) mL/min BUN/Creatinine Ratio 8.5 (6-22) Glucose 88 (70-100) mg/dL Calcium 9.2 (8.4-10.2) mg/dL Total Bilirubin 0.4 (0.2-1.3) mg/dL AST 94 H (14-36) IU/L ALT 66 H (<35) IU/L Alkaline Phosphatase 63 (38-126) U/L Total Protein 6.2 L (6.3-8.2) g/dL Albumin 3.7 (3.5-5.0) g/dL Globulin 2.5 (1.7-4.1) g/dL Albumin/Globulin Ratio 1.5 (1.0-2.8) Urine RBC 0-1/hpf (0-5/HPF) Urine WBC None seen (0-5/HPF) Ur Squamous Epith Cells 1-5 /hpf (0-5/HPF) Urine Bacteria Few (2-10) H (None) Ur Culture Indicated? Cult not indicated Urine Dip Bedside Urine Glucose Negative Bedside Urine Bilirubin - Negative Bedside Urine Ketone - Negative Urine Specific [place] 1.010 Bedside Urine Occult Blood +/- Bedside Urine pH 7.5 Bedside Urine Protein - Negative Bedside Urine Urobilinogen - Negative Bedside Urine Nitrite - Negative Bedside Urine Leukocytes - Negative Esterase Point of care testing: Urine Dip Bedside Urine Glucose Negative Bedside Urine Bilirubin - Negative Bedside Urine Ketone - Negative Urine Specific [place] 1.010 Bedside Urine Occult Blood +/- Bedside Urine pH 7.5 Bedside Urine Protein - Negative Bedside Urine Urobilinogen - Negative Bedside Urine Nitrite - Negative Bedside Urine Leukocytes - Negative Esterase MDM Narrative Medical decision making narrative: Dr brumfield: I was informed the patient by Dr. celaya. Patient has received an enema and the plan was to wait for the results of this and discharged the patient. Did review her history and physical but had no direct contact with the patient. I was informed by nursing staff that the patient did have a good result from the medications provided here and would like to be discharged home. Her discharge instructions were completed by Dr. celaya and printed by myself. Discharge Plan Departure Patient Disposition: Home Clinical Impression: Constipation Qualifiers: Constipation type: unspecified constipation type Qualified Code(s): K59.00 - Constipation, unspecified Instructions: DI for Constipation Activity Restrictions/Additional Instructions: Thank you for coming in today Your severe pain is due to severe constipation. You do not have a thrombosed hemorrhoid you do not have internal hemorrhoids, there is no perirectal abscess, appendicitis or diverticulitis. In the emergency department you are giving 1 L of fluid,, pain control, magnesium citrate to drink an a mineral oil enema. Please consider starting a daily dose of 17 g(1 full cap full) of MiraLax in a large glass of water, juice or coffee or tea. This helps full water into your colon and help prevent constipation. You may find that it is more effective than the Metamucil that you have been using. If you have continued problems or worsening symptoms, please feel free to return to the ER I hope you feel better Prescriptions: New ibuprofen 800 mg tablet 800 mg PO Q8H PRN (Reason: pain) Qty: 30 RF: 0 No Action atovstatin PO RF: 0 levothyroxine 25 mcg capsule 25 mcg PO DAILY RF: 0 Referrals: Lena Mcfadden ARNP [Primary Care Provider] -
--- NOTE | 2021-01-31 04:21 | DI.CT.S_ITS ---
PROCEDURE: CT ABDOMEN PELVIS W CON INDICATIONS: severe jason anal pain TECHNIQUE: After the administration of intravenous contrast, 5 mm thick sections acquired from the diaphragm to the symphysis. 5 mm coronal and sagittal reformats were acquired. For radiation dose reduction, the following was used: automated exposure control, adjustment of mA and/or kV according to patient size. COMPARISON: [facility], CT, CT PELVIS W CON, 12/12/2018, 12:06. FINDINGS: Image quality: Excellent. ABDOMEN: Lung bases: Lung bases are clear. Heart size is normal. Solid organs: There is diffuse hypoattenuation of the liver consistent with fatty infiltration with focal fatty change also demonstrated in the anterior left hepatic lobe along the falciform ligament. The gallbladder appears within normal limits without calcified gallstones. Biliary system is non-dilated. Pancreas enhances normally. No peripancreatic fat stranding or fluid collections. No pancreatic duct dilatation. The spleen is normal in size. No adrenal nodules. Kidneys demonstrate no hydronephrosis. Peritoneum and bowel: Stomach and small bowel loops demonstrate normal wall thickness and caliber. No evidence of appendicitis. There is a moderate to large amount of stool within the ascending and transverse colon as well as the rectum compatible with constipation and possible impaction. There is colonic diverticulosis without acute diverticulitis. Mild periarticular fat stranding is demonstrated in the pelvis without a discrete loculated fluid collection to suggest an abscess. There is a small amount of free fluid in the pelvis which appears within physiologic limits. No free air. Nodes and vessels: No retroperitoneal or mesenteric adenopathy by size criteria. Aorta and inferior vena cava are normal in size. Miscellaneous: No ventral hernias. PELVIS: Genitourinary: Bladder wall thickness is normal. Uterus and ovaries appear within normal size limits. Miscellaneous: No discrete perianal abscess collection identified. No discrete fistula visualized. No inguinal hernias or adenopathy. Bones: No suspicious bony lesions. No vertebral body compression fractures. IMPRESSION: 1. No loculated perirectal or perianal abscess collection identified. No discrete fistula visualized. 2. Moderate colonic stool distention in the rectum suggestive of constipation or possible impaction. A moderate to large amount of stool within the ascending and transverse colon also likely reflects constipation. 3. Colonic diverticulosis without acute diverticulitis. 4. Hepatic steatosis. Dictated by: Sivakumar Knight M.D. on 01/31/2021 at 8:25 Approved by: Sivakumar Knight M.D. on 01/31/2021 at 8:31
[2021-01-31] MEDS: SODIUM CHLORIDE 0.9% 1,000 ML 1000 ML IV (04:36)
[2021-01-31] MEDS: HYDROMORPHONE 0.5 MG INJ IV ×3 (04:36→06:14)
[2021-01-31 04:39] LABS: Add Manual Diff / Slide Review NO; Basophils Absolute Auto 0 /uL (0-100); Basophils Percent Auto 0.6 % (0-2); Eosinophils Absolute Auto 200 /uL (0-450); Eosinophils Percent Auto 3.9 % (2-4); Hematocrit 37.4 % (36-46); Hemoglobin 12.7 g/dL (12.0-16.0); Lymphocytes Absolute Auto 1700 /uL (1100-4500); Lymphocytes Percent Auto 27.3 % (25-40); Mean Corpuscular HGB Conc 33.9 % (30-36); Mean Corpuscular Hemoglobin 32.6 PG (26-34); Mean Corpuscular Volume 96.4 fL (80-100); Monocytes Absolute Auto 300 /uL (0-900); Monocytes Percent Auto 4.8 % (3-14); Neutrophils Absolute Auto 4100 /uL (1500-7000); Neutrophils Percent Auto 63.4 % (50-75); Platelet Count 168 X10^3/uL (150-400); Red Blood Cell Count 3.88 X10^6/uL (4.0-5.2); White Blood Cell Count 6.4 X10^3/uL (4.5-11.0)
[2021-01-31 04:45] LABS: Alanine Aminotransferase 66 IU/L (<35); Albumin 3.7 g/dL (3.5-5.0); Albumin Globulin Ratio 1.5 (1.0-2.8); Alkaline Phosphatase 63 U/L (38-126); Aspartate Aminotransferase 94 IU/L (14-36); BUN Creatinine Ratio 8.5 (6-22); Bilirubin Total 0.4 mg/dL (0.2-1.3); Blood Urea Nitrogen 4 mg/dL (7-17); Calcium 9.2 mg/dL (8.4-10.2); Carbon Dioxide 25 mmol/L (22-32); Chloride 104 mmol/L (98-107); Estimated Glomerular Filt Rate > 60.0 mL/min (>60); Globulin 2.5 g/dL (1.7-4.1); Glucose 88 mg/dL (70-100); HEMOLYSIS < 15 (0-50); Potassium 3.4 mmol/L (3.4-5.1); Sodium 135 mmol/L (137-145); Total Protein 6.2 g/dL (6.3-8.2)
[2021-01-31 05:01] LABS: WBC Urine None Seen (0-5/HPF)
[2021-01-31 05:21] LABS: Bacteria Urine Few (2-10); Culture Indicated Urine Cult Not Indicated; RBC Urine 0-1/HPF (0-5/HPF); Squamous Epithelial Cell Urine 1-5 /HPF (0-5/HPF)
[2021-01-31] MEDS: MAGNESIUM CITRATE 300 ML SOLUTION PO (06:14)
[2021-01-31] MEDS: MINERAL OIL 1 EACH ENEMA PR (06:14)
[2021-01-31 07:35] VITALS: BP 123/68; PULSE 76; RESP 15; O2SAT 99
== END 2021-01-31 07:38 | disposition home or self-care (01) ==
PROVIDERS: Emergency Provider Emergency Medicine; PCP Nurse Practitioner Family
DX: K59.00 Constipation, unspecified (principal)
CPT/HCPCS: 36415; 74177; 80053; 81003; 81015; 85025; 96361; 96374; 96376; 99284; J1170; Q9967

== ENCOUNTER → 2021-04-11 11:07 | Outpatient (CLI) | payer OTHER, SELFPAY ==
[2019-06-22 20:51] VITALS: BMI 25.4
--- NOTE | 2021-04-11 | DI.MG.S_ITS ---
BILATERAL DIGITAL SCREENING MAMMOGRAM 3D/2D WITH CAD: 04/11/2021 CLINICAL: Routine screening. Family history of breast cancer. Comparison is made to exams dated: 04/06/2020 mammogram, 08/27/2018 mammogram, 07/23/2018 mammogram, 06/20/2018 mammogram, and 03/18/2017 mammogram - [facility]. The tissue of both breasts is heterogeneously dense. This may lower the sensitivity of mammography. Current study was also evaluated with a Computer Aided Detection (CAD) system. There are benign calcifications in both breasts. There also is a biopsy clip in the left breast. No significant masses, calcifications, or other findings are seen in either breast. There has been no significant interval change. IMPRESSION: BENIGN There is no mammographic evidence of malignancy. A 1 year screening mammogram is recommended. This exam was interpreted at Station ID: [id number]. NOTE: For mammograms, a report in lay terms will be sent to the patient. Approximately 15% of breast malignancies will not be visualized mammographically. In the management of a palpable breast mass, a negative mammogram must not discourage biopsy of a clinically suspicious lesion. Electronically Signed By: Lars Ruth acr/penrad:04/11/2021 11:43:40 copy to: Lena Mcfadden letter sent: Normal Exam ACR BI-RADS Category 2: Benign Finding(s) [id number]
== END ==
PROVIDERS: PCP Nurse Practitioner Family; Referring Provider Student in an Organized Health Care Education/Training Program; Visit Provider Student in an Organized Health Care Education/Training Program
DX: Z12.31 Encounter for screening mammogram for malignant neoplasm of breast (principal); Z80.3 Family history of malignant neoplasm of breast
CPT/HCPCS: 77063; 77067

== ENCOUNTER 2021-06-25 17:40 | Emergency (ER) | payer OTHER, SELFPAY ==
[2019-06-22 20:51] VITALS: BMI 25.4
[2021-06-25 18:07] VITALS: BP 110/77; PULSE 82; RESP 20; TEMP 36.1; O2SAT 97; BMI 22.8
--- NOTE | 2021-06-25 18:15 | DI.RAD.S_ITS ---
PROCEDURE: XR HUMERUS RT 2V INDICATIONS: suspected fracture TECHNIQUE: 2 views of the humerus were acquired. COMPARISON: None. FINDINGS: Bones: There is a comminuted spiral fracture of the proximal to mid humeral shaft with displacement. No dislocations. No suspicious bony lesions. Soft tissues: No suspicious soft tissue calcifications. IMPRESSION: Comminuted fracture of the proximal to mid humeral shaft. Dictated by: Yemi Herbert M.D. on 06/25/2021 at 18:24 Approved by: Yemi Herbert M.D. on 06/25/2021 at 18:28
--- NOTE | 2021-06-25 18:52 | ED_ITS ---
HPI - Extremity Injury (Upper) General Chief Complaint: Extremity Injury, Upper Stated Complaint: Right Arm/Head Injury, Fall Time Seen by Provider: 06/25/21 18:07 Source: patient Mode of arrival: Ambulatory Limitations: no limitations History of Present Illness HPI narrative: 45-year-old female former smoker with history of hyperlipidemia and hypothyroid presents with chief complaint of increasing right arm pain after a fall a few days ago. She was in [place] and fell down an escalator and injured her head and arm. She was seen and evaluated at an outside facility and had sutures placed and was placed in a right upper extremity brace for stabilization and pain control of a comminuted humerus fracture. She denies any numbness, tingling or weakness. She has no wrist drop. She states that she had adjusted her brace earlier and does not think she got back in the right place and feels like the bone is moving around. She wants to be seen for evaluation Related Data Home Medications Medication Instructions Recorded Confirmed levothyroxine 25 mcg capsule 25 mcg PO DAILY 02/11/19 09/14/20 atovstatin PO 09/14/20 09/14/20 Previous Rx's Medication Instructions Recorded ibuprofen 800 mg tablet 800 mg PO Q8H PRN #30 tab 01/31/21 oxycodone 5 mg tablet 5 mg PO Q4-6H PRN #30 tab 06/25/21 Allergies Allergy/AdvReac Type Severity Reaction Status Date / Time INGREDIENT: NO KNOWN - NO Allergy Unknown Uncoded 09/14/20 16:32 KNOWN DRUG ALLERGY Review of Systems Review of Systems Narrative: GENERAL: Denies chills, fatigue, malaise, fever, sweats. HEENT: Denies sinus pain, ear pain, sore throat, difficulty swallowing, dizziness. RESPIRATORY: Denies dyspnea, cough, wheezing, hemoptysis, sputum. CARDIOVASCULAR: Denies chest pain, palpitations, orthopnea, edema, GASTROINTESTINAL: Denies nausea, vomiting, abdominal pain, diarrhea, constipation, melena. : Denies dysuria, frequency, incontinence, hematuria, urinary retention. MUSCULOSKELETAL: See HPI SKIN: Denies rash, skin lesions, or other NEUROLOGIC: Denies weakness, headache, numbness, change in speech, confusion, seizures, incoordination. PSYCHIATRIC: No concerning psychosocial issues. 12 point review of systems is negative except for those stated above Patient History Medical History Anemia (~1996) Chicken pox Fractures UTI (urinary tract infection) Surgical History Anesthesia History of delivery (~05/2006) History of hysterectomy for benign disease (~06/2019) History of lumpectomy (~08/2010) Family History Father Cancer Social History household members: spouse and children Smoking Status: Former smoker Smoking Status: Former smoker alcohol intake frequency: 3 or more drinks per day Substance Use Type: does not use Exam Narrative Exam Narrative: GEN: AOx3 and in mild distress, GCS 15 HEAD: Right anterior scalp laceration just superior to the hairline with dried scabs and sutures in place EYES: Pupils are equal, round, and reactive to light and accommodation. Extraoccular muscles are intact bilaterally. There is no subconjunctival hemorrhage or exudate. CHEST: Lungs are clear to auscultation bilaterally and free of wheezes, rales, or rhonchi. Heart rate is regular rhythm, there are no murmurs, clicks, rubs, or gallops. There is no chest wall tenderness. ABD: Abdomen is soft and nontender. There is no guarding or rebound. Bowel sounds are normal in all 4 quadrants. There is no mass or organomegaly. EXT: Right arm in humerus brace. Close, isolated and N/V in tact. Full strength at wrist regarding extension at wrist, no evidence of radial nerve involvement SKIN: Warm, pink, and dry. No erythema or rash Initial Vital Signs Initial Vital Signs: Vital Signs Temperature 96.9 F L 06/25/21 18:07 Pulse Rate 82 06/25/21 18:07 Respiratory Rate 20 06/25/21 18:07 Blood Pressure 110/77 06/25/21 18:07 Pulse Oximetry 97 06/25/21 18:07 Procedures Orthopedic Splinting/Casting Injury #1: Side: right Upper Extremity Injury Location: upper arm Upper Extremity Immobilizer: sling/shoulder immobilizer and posterior splint (patient's own humerus brace re-adjusted superiorly as it had slid inferiorly a bit) Course Orders Ordered: ED Orders 06/25/21 18:15 XR humerus RT 2V Stat Discontinued Medications Oxycodone/Acetaminophen (Oxycodone/Apap 5/325 Prepack) 1 bottle MISC SEEINSTR ONE Stop: 06/25/21 19:18 Last Admin: 06/25/21 19:29 Dose: 1 bottle Documented by: KEANU Kirk Consultation #1: Discussed with on-call orthopedist who has had a chance to review images. She recommends humerus brace and sling along with pain control and follow-up. Vital Signs Vital signs: Vital Signs - 8 hr 06/25/21 19:27 Pulse Rate 85 Blood Pressure 130/73 Pulse Oximetry 100 MDM - Extremity Injury (Upper) Imaging Data Extremity x-ray #1: Radiologist's Impression: Will Lee??45??F??1975 ? Allergy/Adv: [INGREDIENT: NO KNOWN - NO KNOWN DRUG ALLERGY] (More??) Close Humerus X-Ray (Signed) Daniel Herbert - 06/25/21 Mammogram Screening (Signed) Lars Ruth - 04/11/21 Abdomen/Pelvis CT (Signed) Sivakumar Knight - 01/31/21 Mammogram Screening (Signed) Curt Del Real - 04/06/20 Breast Ultrasound (Signed) Yen Gabriel - 02/18/[address] (Signed) Dominic Soriano - 12/12/18 Pelvis Ultrasound (Signed) Wiliam Li - 12/10/18 Mammogram Diagnostic (Signed) Jaylon Weinstein - 08/27/18 Breast Biopsy Ultrasound (Signed) Jaylon Weinstein - 08/27/18 Mammogram, Additional Views (Signed) Carlos Savage - 07/23/18 Breast Ultrasound (Signed) Carlos Savage - 07/23/18 Mammogram Screening (Signed) Sivakumar Knight - 06/20/18 MRI Orbit/Face/Neck/IAC (Signed) Wiliam Li - 01/22/18 Launch?[address] [address] XRay Report Signed Patient: Will Lee MR#: [id number] : 1975 Acct:[id number] Age/Sex: 45 / F Date of Service: 06/25/21 Loc: ED Accession Number: [id number] ?? Procedure: XR humerus RT 2V Ordering Provider: Moises Gardiner D.O. PROCEDURE:? XR HUMERUS RT 2V ? INDICATIONS:? suspected fracture ? TECHNIQUE:? 2 views of the humerus were acquired.? ? COMPARISON:? None. ? FINDINGS:? ? Bones:? There is a comminuted spiral fracture of the proximal to mid humeral shaft with displacement.? No dislocations.? No suspicious bony lesions. ? Soft tissues:? No suspicious soft tissue calcifications.? ? IMPRESSION:? Comminuted fracture of the proximal to mid humeral shaft. ? ? Dictated by: Yemi Herbert M.D. on 06/25/2021 at 18:24 ? ? Approved by: Yemi Herbert M.D. on 06/25/2021 at 18:28 ? Discharge Plan Departure Patient Disposition: Home Clinical Impression: Humeral fracture Qualifiers: Encounter type: initial encounter Humerus Location: shaft Fracture type: closed Fracture morphology: comminuted Fracture alignment: displaced Laterality: right Qualified Code(s): S42.351A - Displaced comminuted fracture of shaft of humerus, right arm, initial encounter for closed fracture Instructions: DI for Fracture Activity Restrictions/Additional Instructions: *You have been diagnosed with [comminuted right humerus fracture *What to do: *Please continue to take your regular medications as directed. [x ] New medication prescriptions sent to your pharmacy: [[facility] [place]] [ ] New medication written as a paper prescription [x] Tylenol and occasional Motrin for pain *Please follow up with Dr. Wiley] of [facility] in 2-3 days, call for an appointment. Let them know you were seen in the Emergency Department and that we ask that you be seen in follow up. We will electronically transmit a record of today's note if your PCP is in our system *Return to Emergency Department if you should have any new, worsening or concerning symptoms, such as [worsening pain, significant swelling, cold extremities, numbness, tingling, weakness or other bothersome symptoms Splint Care: Keep splint clean and dry. Elevated affected body part to decrease swelling. OK to use ice pack on the affected body part. Use for 15-20 minutes each time, for 5-6x per day. If you develop worsening pain, numbness, tingling, discoloration of the affected body part, loosen the splint by loosening the STARLA wrap, and either see your doctor for an urgent re-assessment, or return to the Emergency Department. Return to the Emergency Department for any new or worsening symptoms. You have been prescribed a short course of narcotic medications. These are potentially dangerous and addictive medications that should be used carefully. While on these medications you cannot drive or operate heavy machinery. Additionally, you cannot sign legal documents or perform any duties such as this. Many people get constipated on narcotic medications so it would be advisable to discuss stool softeners with the pharmacist when you pick up attendant your prescription. Please understand that we cannot provide further refills of narcotics or controlled substances through the ED and your pain management will need to be through your Primary Care Provider Prescriptions: New oxycodone 5 mg tablet 5 mg PO Q4-6H PRN (Reason: pain) Qty: 30 RF: 0 No Action atovstatin PO RF: 0 levothyroxine 25 mcg capsule 25 mcg PO DAILY RF: 0 ibuprofen 800 mg tablet 800 mg PO Q8H PRN (Reason: pain) Qty: 30 RF: 0 Referrals: Lena Mcfadden ARNP [Primary Care Provider] - Aide Cuadra MD [Physician] -
[2021-06-25 19:27] VITALS: BP 130/73; PULSE 85; O2SAT 100
[2021-06-25] MEDS: OXYCODONE/APAP 5/325 PREPACK 1 BOTTLE MISC (19:29)
--- NOTE | 2021-06-25 19:34 | PC.NURSE ---
patient fell down an escalator and broke her right humerous
--- NOTE | 2021-06-25 19:35 | PC.NURSE ---
she was in [place] and had a drink and tripped and fell down the escalator. She has full range of motion in her wrist and CMS is in tact.
== END 2021-06-25 19:38 | disposition home or self-care (01) ==
PROVIDERS: Emergency Provider Emergency Medicine; PCP Nurse Practitioner Family
DX: S42.351A Displaced comminuted fracture of shaft of humerus, right arm, initial encounter for closed fracture (principal); W10.0XXA Fall (on)(from) escalator, initial encounter
CPT/HCPCS: 73060; 99281; 99283

== ENCOUNTER 2021-07-11 16:54 | Emergency (ER) | payer OTHER, SELFPAY ==
[2019-06-22 20:51] VITALS: BMI 25.4
[2021-07-11 17:02] VITALS: BP 112/77; PULSE 77; RESP 18; TEMP 36.6; O2SAT 96; BMI 22.8
[2021-07-11 18:11] VITALS: BP 112/64; PULSE 63; O2SAT 100
[2021-07-11 18:30] VITALS: BP 105/63; PULSE 70; O2SAT 99
[2021-07-11 19:00] VITALS: PULSE 73; O2SAT 99
--- NOTE | 2021-07-11 19:00 | ED_ITS ---
HPI - GI Bleed <Selena Cash MD - Last Filed: 07/29/21 06:07> General Chief complaint: GI Bleed Stated complaint: hemorrhoid pain Time Seen by Provider: 07/11/21 18:10 Source: patient Mode of arrival: Ambulatory Limitations: no limitations History of Present Illness HPI Narrative: pt seen by Ellen Carrasquillo. Will need to complete documentation Related Data Home Medications Medication Instructions Recorded Confirmed levothyroxine 25 mcg capsule 25 mcg PO DAILY 02/11/19 09/14/20 atovstatin PO 09/14/20 09/14/20 Previous Rx's Medication Instructions Recorded ibuprofen 800 mg tablet 800 mg PO Q8H PRN #30 tab 01/31/21 oxycodone 5 mg tablet 5 mg PO Q4-6H PRN #30 tab 06/25/21 Allergies Allergy/AdvReac Type Severity Reaction Status Date / Time No Known Drug Allergies Allergy Verified 07/11/21 17:02 <Ellen Carrasquillo PA-C - Last Filed: 07/17/21 17:48> History of Present Illness HPI Narrative: 45-year-old female with past medical history hemorrhoids, hypothyroidism presents to the ED with 4 days of rectal pain from hemorrhoids. Patient endorses having a long history of hemorrhoids, constipation. Patient recently had a humeral fracture for which she is taking opioid pain medications, which have exacerbated her constipation and hemorrhoids. Patient states she has been straining to pass stool over the past few days, which aggravated her hemorrhoids the cart increasingly painful. Patient denies any rectal bleeding. Patient denies fever, chills, cough, chest pain, shortness of breath, dysuria, nausea, vomiting, abdominal pain, lightheadedness, dizziness, syncope. <Ellen Carrasquillo PA-C - Last Filed: 07/17/21 17:48> Constitutional Constitutional: Denies chills, Denies fatigue, Denies fever(s), Denies frequent falls, Denies lethargy and Denies weakness Eyes Eyes: Denies change in vision, Denies eye discharge, Denies irritation and Denies loss of vision ENT Ears, Nose, Mouth, and Throat: Denies change in voice, Denies dizziness, Denies neck pain, Denies sore throat and Denies throat swelling Cardiovascular Cardiovascular: Denies chest pain, Denies irregular heart rhythm, Denies lightheadedness, Denies palpitations, Denies dyspnea, Denies dyspnea on exertion and Denies orthopnea Respiratory Respiratory: Denies cough, Denies dyspnea, Denies dyspnea on exertion and Denies wheezing Gastrointestinal Gastrointestinal: Denies abdominal pain, Denies change in bowel habits, Reports constipation, Denies diarrhea, Denies nausea and Denies vomiting Comments: Painful hemorrhoids. Musculoskeletal Musculoskeletal: Denies neck pain and Denies numbness Integumentary/Breasts Skin/Breast: Denies pruritus, Denies erythema, Denies rash and Denies wounds Neurologic Neurologic: Denies behavioral changes, Denies confusion, Denies dizziness, Denies frequent falls, Denies loss of vision, Denies numbness and Denies weaknes s Psychiatric Psychiatric: Denies anxiety, Denies behavioral changes, Denies confusion, Denies depression, Denies homicidal ideation and Denies suicidal ideation Endocrine Endocrine: Denies fatigue, Denies flushing and Denies palpitations Hematologic/Lymphatic Hematologic/Lymphatic: Denies easy bruising Allergic/Immunologic Allergic/Immunologic: Denies urticaria, Denies throat swelling and Denies whee zing Patient History <Selena Cash MD - Last Filed: 07/29/21 06:07> Medical History Anemia (~1996) Chicken pox Fractures UTI (urinary tract infection) Surgical History Anesthesia History of delivery (~05/2006) History of hysterectomy for benign disease (~06/2019) History of lumpectomy (~08/2010) Family History Father Cancer Social History household members: spouse and children Smoking Status: Former smoker Smoking Status: Former smoker tobacco type: smokeless tobacco alcohol intake frequency: 0-2 drinks per day Substance Use Type: does not use Exam <Selena Cash MD - Last Filed: 07/29/21 06:07> Initial Vital Signs Initial Vital Signs: Vital Signs Temperature 97.9 F 07/11/21 17:02 Pulse Rate 77 07/11/21 17:02 Respiratory Rate 18 07/11/21 17:02 Blood Pressure 112/77 07/11/21 17:02 Pulse Oximetry 96 07/11/21 17:02 <Ellen Carrasquillo PA-C - Last Filed: 07/17/21 17:48> Initial Vital Signs Initial Vital Signs: Vital Signs Temperature 97.9 F 07/11/21 17:02 Pulse Rate 77 07/11/21 17:02 Respiratory Rate 18 07/11/21 17:02 Blood Pressure 112/77 07/11/21 17:02 Pulse Oximetry 96 07/11/21 17:02 Const General: cooperative HENMT Head: normocephalic and atraumatic Ears: external ears normal and TM's normal bilaterally Nose: external nose normal and No nasal discharge Face and sinus: sinuses nontender, face symmetric, no sinus tenderness and No dry mucous membranes Mouth: oral mucosae normal and moist mucous membranes Teeth and gingiva: dentition normal Throat: tonsils normal and uvula midline Eyes General: appearance normal, both eyes and all related structures Eyelids: eyelids normal Conjunctivae: conjunctivae normal Sclera: sclerae normal Pupils: PERRL EOM: EOM intact bilaterally Neck Neck: normal visual inspection, trachea midline, No lymphadenopathy, No midline deformity and No JVD Lymphatic: No lymphedema Chest Chest: normal inspection of the chest Resp Effort & Inspection: normal respiratory effort, able to speak in complete sentences, no respiratory distress and no use of accessory muscles Auscultation: clear to auscultation bilaterally, no rales, no rhonchi and no wheezes Cardio Rate: regular rate Rhythm: regular rhythm Heart Sounds: no click, no gallops, no murmurs and no rubs Pulses: normal peripheral pulses GI Inspection: non-distended Palpation: soft, no hepatosplenomegaly, No guarding, No pulsatile mass and No tender Auscultation: normal bowel sounds Other: External hemorrhoids visualized. Non thrombosed. Painful to touch. Abdomen soft, nondistended, nontender to palpation Back/Spine/Pelvis Back: No CVA tenderness Cervical Spine: cervical ROM normal and No pain with cervical ROM Thoracic/Lumbar Spine: thoracic and lumbar spine normal to inspection Skin General: no rashes or lesions noted, No jaundice and No petechiae Neuro General: patient alert, patient oriented x3, gait normal and no focal motor deficits Speech: speech normal Extrem General: full ROM, no clubbing, cyanosis or edema, no pedal edema and no calf tenderness Psych Appearance: well kempt Mental Status: mental status grossly normal Attitude: cooperative Thought Content: normal and suicidality Judgment: judgment good Course <Selena Cash MD - Last Filed: 07/29/21 06:07> Orders Ordered: Discontinued Medications Lidocaine HCl (Lidocaine Viscous 2% 15 Ml Solution) 15 ml TOP NOW ONE Stop: 07/11/21 19:28 Last Admin: 07/11/21 19:46 Dose: 15 ml Documented by: CORBY Vital Signs Vital signs: Vital Signs - 8 hr 07/11/21 19:45 Pulse Rate 66 Respiratory Rate 17 Blood Pressure 106/51 L Pulse Oximetry 98 <Ellen Carrasquillo PA-C - Last Filed: 07/17/21 17:48> Orders Ordered: Discontinued Medications Lidocaine HCl (Lidocaine Viscous 2% 15 Ml Solution) 15 ml TOP NOW ONE Stop: 07/11/21 19:28 Last Admin: 07/11/21 19:46 Dose: 15 ml Documented by: CORBY Vital Signs Vital signs: Vital Signs - 8 hr 07/11/21 19:45 Pulse Rate 66 Respiratory Rate 17 Blood Pressure 106/51 L Pulse Oximetry 98 <Ellen Carrasquillo PA-C - Last Filed: 07/17/21 17:48> Medical Records Attestation: I reviewed the patient's medical records. [facility] Narrative Medical decision making narrative: 45-year-old female with past medical history hemorrhoids, hypothyroidism pre sents to the ED with 4 days of rectal pain from hemorrhoids. Given that the hemorrhoids are not thrombosed, recommend conservative management with topical lidocaine, topical hydrocortisone. Patient to continue taking MiraLax and Dulcolax to prevent constipation. Discharge home with prescription for topical lidocaine, topical hydrocortisone. ED return precautions discussed. Patient verbalized understanding. Discharge Plan Departure Patient Disposition: Home Clinical Impression: External hemorrhoid Instructions: DI for Hemorrhoids Activity Restrictions/Additional Instructions: You were seen in the ED today for painful hemorrhoids. You may use topical lidocaine cream and topical hydrocortisone cream for the pain and to shrink the hemorrhoids. Continue MiraLax and stool softeners to avoid constipation. You may follow-up with your PCP for further follow-up. Prescriptions: No Action atovstatin PO 0RF levothyroxine 25 mcg capsule 25 mcg PO DAILY 0RF ibuprofen 800 mg tablet 800 mg PO Q8H PRN (Reason: pain) Qty: 30 0RF oxycodone 5 mg tablet 5 mg PO Q4-6H PRN (Reason: pain) Qty: 30 0RF Referrals: Lena Mcfadden ARNP [Primary Care Provider] - ED Sign-out <Selena Cash MD - Last Filed: 07/29/21 06:07> [facility] Att[facility]: I was immediately available in the department for consultation throughout this patient's visit. I agree with documentation as above. Selena Cash MD
[2021-07-11 19:01] VITALS: BP 125/66; PULSE 73; O2SAT 100
[2021-07-11 19:45] VITALS: BP 106/51; PULSE 66; RESP 17; O2SAT 98
[2021-07-11] MEDS: LIDOCAINE VISCOUS 2% 15 ML SOLUTION TOP (19:46)
== END 2021-07-11 19:45 | disposition home or self-care (01) ==
PROVIDERS: Emergency Provider Student in an Organized Health Care Education/Training Program; PCP Nurse Practitioner Family
DX: K64.4 Residual hemorrhoidal skin tags (principal)
CPT/HCPCS: 99282

== ENCOUNTER 2021-11-26 01:03 | Emergency (ER) | payer OTHER, SELFPAY ==
[2019-06-22 20:51] VITALS: BMI 25.4
[2021-11-26 01:13] VITALS: BP 111/60; PULSE 92; RESP 22; O2SAT 100
[2021-11-26 01:16] VITALS: PULSE 91; RESP 23; O2SAT 100
[2021-11-26] MEDS: SODIUM CHLORIDE 0.9% 1,000 ML 1000 ML IV (01:23)
[2021-11-26 01:30] VITALS: BP 107/59; PULSE 84; RESP 23; O2SAT 100
[2021-11-26 01:31] LABS: Add Manual Diff / Slide Review NO; Basophils Absolute Auto 100 /uL (0-100); Basophils Percent Auto 0.9 % (0-2); Eosinophils Absolute Auto 200 /uL (0-450); Eosinophils Percent Auto 2.3 % (2-4); Hematocrit 38.3 % (36-46); Hemoglobin 12.8 g/dL (12.0-16.0); Lymphocytes Absolute Auto 5100 /uL (1100-4500); Lymphocytes Percent Auto 53.1 % (25-40); Mean Corpuscular HGB Conc 33.5 % (30-36); Mean Corpuscular Hemoglobin 31.8 PG (26-34); Mean Corpuscular Volume 94.9 fL (80-100); Monocytes Absolute Auto 600 /uL (0-900); Monocytes Percent Auto 6.7 % (3-14); Neutrophils Absolute Auto 3500 /uL (1500-7000); Platelet Count 293 X10^3/uL (150-400); Red Blood Cell Count 4.03 X10^6/uL (4.0-5.2); Red Cell Distribution Width 14.4 % (11.6-14.8); White Blood Cell Count 9.5 X10^3/uL (4.5-11.0)
[2021-11-26 01:44] LABS: Alanine Aminotransferase 135 IU/L (<35); Albumin 4.8 g/dL (3.5-5.0); Albumin Globulin Ratio 1.6 (1.0-2.8); Alkaline Phosphatase 104 U/L (38-126); Aspartate Aminotransferase 113 IU/L (14-36); BUN Creatinine Ratio 16.7 (6-22); Bilirubin Total 0.3 mg/dL (0.2-1.3); Blood Urea Nitrogen 9 mg/dL (7-17); Calcium 9.1 mg/dL (8.4-10.2); Carbon Dioxide 22 mmol/L (22-32); Chloride 109 mmol/L (98-107); Creatine Kinase 63 U/L (30-135); Estimated Glomerular Filt Rate > 60.0 mL/min (>60); Glucose 98 mg/dL (70-100); HEMOLYSIS < 15 (0-50); Potassium 4.1 mmol/L (3.4-5.1); Sodium 144 mmol/L (137-145); Total Protein 7.8 g/dL (6.3-8.2)
[2021-11-26 01:54] LABS: Troponin I < 0.012 ng/mL (0.01-0.034)
--- NOTE | 2021-11-26 01:58 | PC.NURSE ---
pt awake and alert wanting to go home, Dr Horta informed
[2021-11-26 02:00] VITALS: BP 117/69; PULSE 91; RESP 35; O2SAT 100
[2021-11-26 02:03] LABS: Ethanol (ETOH) 434 mg/dL
--- NOTE | 2021-11-26 02:03 | DI.CT.S_ITS ---
PROCEDURE: CT HEAD/BRAIN WO CON INDICATIONS: etoh with loc TECHNIQUE: Noncontrast 4.5 mm thick angled axial sections acquired from the foramen magnum to the vertex, with coronal and sagittal reformats. For radiation dose reduction, the following was used: automated exposure control, adjustment of mA and/or kV according to patient size. COMPARISON: [facility], MR, MR BRAIN (IAC) WWO CON, 01/22/2018, 13:02. [facility] Film, CT, CT HEAD WITHOUT CONTRAST, 06/21/2021, 22:54. [facility], CT, CT CERVICAL SPINE WO CON, 11/26/2021, 2:15. [facility] Outside [facility], CT, CT FACIAL BONES WITHOUT CONTRAST, 06/21/2021, 23:03. FINDINGS: Image quality: Excellent. CSF spaces: Basal cisterns are patent. No extra-axial fluid collections. Ventricles are normal in size and shape. Brain: No midline shift. No intracranial masses or hemorrhage. Martinez-white matter interface is normal. Skull and face: Calvarium and visualized facial bones are intact, without suspicious lesions. Sinuses: Visualized sinuses and mastoids are clear. Moderate rightward nasal septal deviation can be seen. IMPRESSION: No acute intracranial hemorrhage is seen. No acute intracranial process is seen. Note: No significant discrepancy from the preliminary report. Dictated by: Wiliam Li M.D. on 11/26/2021 at 7:09 Approved by: Wiliam Li M.D. on 11/26/2021 at 7:10
--- NOTE | 2021-11-26 02:03 | DI.CT.S_ITS ---
PROCEDURE: CT CERVICAL SPINE WO CON INDICATIONS: etoh with loc TECHNIQUE: Noncontrast 3 mm thick sections acquired from the skull base to the T4 level. Sagittal and coronal reformats were then constructed. For radiation dose reduction, the following was used: automated exposure control, adjustment of mA and/or kV according to patient size. COMPARISON: [facility] Film, CT, CT CERVICAL SPINE WITHOUT CONTRAST, 06/21/2021, 22:54. [facility], CT, CT HEAD/BRAIN WO CON, 11/26/2021, 2:15. FINDINGS: Image quality: Excellent. Bones: No fractures or dislocations. Visualized superior ribs are intact. There is reversal of the normal cervical lordosis. Minimal anterolisthesis is seen at C4-C5. Mild disc space narrowing is seen at C5-C6. Broad-based disc bulge is seen at C6-C7. Several levels facet arthropathy can be seen, right worse than left. Soft tissues: Prevertebral soft tissues are normal in thickness. No paravertebral hematomas. No apical pneumothoraces. IMPRESSION: Negative for fracture. Degenerative changes are seen. Note: No significant discrepancy from the preliminary report. Dictated by: Wiliam Li M.D. on 11/26/2021 at 7:05 Approved by: Wiliam Li M.D. on 11/26/2021 at 7:08
--- NOTE | 2021-11-26 02:04 | ED.SYNCOPE ---
HPI - Syncope General Chief Complaint: Syncope Stated Complaint: ETOH/Syncope Time Seen by Provider: 11/26/21 01:18 Source: EMS Mode of arrival: EMS Limitations: no limitations History of Present Illness HPI narrative: Patient is a 46-year-old female with history of alcohol abuse presenting today after syncopal episode. Apparently she went to the bathroom and was found slumped over. She was then lowered to the ground. No sign of head trauma. Patient says that she did fall and hit her head back in June in [place] and required 17 stitches. She says that she has felt off ever since then. She says she only drinks twice a week. She has had a couple shots and 2 Trulies tronight. She denies any other injury. Related Data Home Medications Medication Instructions Recorded Confirmed levothyroxine 25 mcg capsule 25 mcg PO DAILY 02/11/19 09/14/20 atovstatin PO 09/14/20 09/14/20 Previous Rx's Medication Instructions Recorded ibuprofen 800 mg tablet 800 mg PO Q8H PRN #30 tab 01/31/21 oxycodone 5 mg tablet 5 mg PO Q4-6H PRN #30 tab 06/25/21 Allergies Allergy/AdvReac Type Severity Reaction Status Date / Time No Known Drug Allergies Allergy Verified 07/11/21 17:02 Review of Systems Review of Systems Narrative: GENERAL: Denies chills, fatigue, malaise, fever, sweats, travel HEENT: Denies sinus pain, ear pain, sore throat, difficulty swallowing, neck pain RESPIRATORY: Denies dyspnea, cough, wheezing, hemoptysis, sputum. CARDIOVASCULAR: Denies chest pain, palpitations, orthopnea, edema GASTROINTESTINAL: Denies nausea, vomiting, abdominal pain, diarrhea, constipation, melena. : Denies dysuria, frequency, incontinence, hematuria, urinary retention, flank pain. MUSCULOSKELETAL: Denies weakness, joint pain, or bony pain SKIN: No rash, no erythema, no pruritus NEUROLOGIC: See HPI PSYCHIATRIC: See HPI 12 point review of systems is negative except for those stated above and HPI Patient History Medical History Anemia (~1996) Chicken pox Fractures UTI (urinary tract infection) Surgical History Anesthesia History of delivery (~05/2006) History of hysterectomy for benign disease (~06/2019) History of lumpectomy (~08/2010) Family History Father Cancer Social History household members: spouse and children Smoking Status: Former smoker Smoking Status: Former smoker tobacco type: smokeless tobacco alcohol intake frequency: 0-2 drinks per day Substance Use Type: does not use Exam Initial Vital Signs Initial Vital Signs: Vital Signs Pulse Rate 92 H 11/26/21 01:13 Respiratory Rate 22 11/26/21 01:13 Blood Pressure 111/60 11/26/21 01:13 Pulse Oximetry 100 11/26/21 01:13 GENERAL: Alert 46-year-old female and in no acute distress. HEENT: Head atraumatic,EOMI, pupils reactive, face symmetric, moist mucous membranes CARDIOVASCULAR: Regular rate and rhythm without murmurs, rubs or gallops. RESPIRATORY: Breath sounds equal bilaterally, no wheezes rales or rhonchi. ABDOMEN: Soft, nontender. Normoactive bowel sounds all 4 quadrants. No guarding or rebound. EXTREMITIES: Normal range of motion, no clubbing or edema. Neurovascularly intact NEUROLOGICAL: Alert and oriented x4.Normal gait and minimal slurring. [place] Farmer strength equal bilaterally moving both extremities SKIN: Warm, dry, no laceration, no petechiae, no rashes or lesions. Course Orders Ordered: ED Orders 11/26/21 EKG-12 Lead Routine 11/26/21 01:10 Complete Blood Count AUTO DIFF Stat Comprehensive Metabolic Panel Stat ETOH [Ethanol (ETOH)] Stat Troponin & CK Cardiac Panel Stat 11/26/21 02:03 CT cervical spine wo con Stat CT head/brain wo con Stat 11/26/21 03:05 Test Urine Stat Urinalysis and Microscopic Stat Urine Drug Screen, Rapid Stat Discontinued Medications Sodium Chloride (Normal Saline 0.9%) 1,000 mls @ 1,000 mls/hr IV CONT SHEYLA Last Infusion: 11/26/21 03:06 Dose: 0 mls/hr Documented by: Admin: 11/26/21 01:23 Dose: 1,000 mls/hr Documented by: VIK Vital Signs Vital signs: Vital Signs - 8 hr 11/26/21 01:13 11/26/21 01:16 11/26/21 01:30 Pulse Rate 92 H 91 H 84 Respiratory Rate 22 23 23 Blood Pressure 111/60 107/59 L Pulse Oximetry 100 100 100 11/26/21 02:00 11/26/21 02:30 11/26/21 03:00 Pulse Rate 91 H 86 85 Respiratory Rate 35 H 23 20 Blood Pressure 117/69 118/64 82/47 L Pulse Oximetry 100 88 L 98 MDM - Syncope Lab Data Result diagrams: 11/26/21 01:10 11/26/21 01:10 Labs: Lab Results 11/26/21 11/26/21 11/26/21 Range/Units 01:10 01:10 01:10 WBC 9.5 (4.5-11.0) X10^3/uL RBC 4.03 (4.0-5.2) X10^6/uL Hgb 12.8 (12.0-16.0) g/dL Hct 38.3 (36-46) % MCV 94.9 (80-100) fL MCH 31.8 (26-34) PG MCHC 33.5 (30-36) % RDW 14.4 (11.6-14.8) % Plt Count 293 (150-400) X10^3/uL Neut % (Auto) 37.0 L (50-75) % Lymph % (Auto) 53.1 H (25-40) % [place] % (Auto) 6.7 (3-14) % Eos % (Auto) 2.3 (2-4) % Baso % (Auto) 0.9 (0-2) % Neut # (Auto) 3500 (3753-2785) /uL Lymph # (Auto) 5100 H (6209-9454) /uL [place] # (Auto) 600 (0-900) /uL Eos # (Auto) 200 (0-450) /uL Baso # (Auto) 100 (0-100) /uL Sodium 144 (137-145) mmol/L Potassium 4.1 (3.4-5.1) mmol/L Chloride 109 H (98-107) mmol/L Carbon Dioxide 22 (22-32) mmol/L BUN 9 (7-17) mg/dL Creatinine 0.54 (0.52-1.04) mg/dL Estimated GFR > 60.0 (>60) mL/min BUN/Creatinine Ratio 16.7 (6-22) Glucose 98 (70-100) mg/dL Calcium 9.1 (8.4-10.2) mg/dL Total Bilirubin 0.3 (0.2-1.3) mg/dL AST 113 H (14-36) IU/L ALT 135 H (<35) IU/L Alkaline Phosphatase 104 (38-126) U/L Total Creatine Kinase 63 (30-135) U/L CK-MB (CK-2) TNP CK-MB (CK-2) Rel Index TNP Troponin I < 0.012 (0.01-0.034) ng/mL Total Protein 7.8 (6.3-8.2) g/dL Albumin 4.8 (3.5-5.0) g/dL Globulin 3.0 (1.7-4.1) g/dL Albumin/Globulin Ratio 1.6 (1.0-2.8) Urine Color Urine Appearance Urine pH (4.5-8.0) Ur Specific [place] (1.000-1.035) Urine Protein (Negative) Urine Glucose (UA) (Negative) g/dL Urine Ketones (NEGATIVE) Urine Occult Blood (Negative) Urine Nitrate (Negative) Urine Bilirubin (NEGATIVE) Urine Urobilinogen (0.2) E.U./dL Ur Leukocyte Esterase (NEGATIVE) Urine RBC (0-5/HPF) Urine WBC (0-5/HPF) Ur Squamous Epith Cells (0-5/HPF) Urine Bacteria (None) Ur Culture Indicated? Micro UA Comment Urine Test (Negative) U Opiates 300ng/mL cut (Negative) Ur Oxycodone Screen (Negative) Urine Methadone Screen (Negative) Ur Barbiturates Screen (Negative) U Tricyclic Antidepress (Negative) Ur Phencyclidine Scrn (Negative) Ur Amphetamines Screen (Negative) U Methamphetamines Scrn (Negative) Ur MDMA Scrn (Ecstasy) (Negative) U Benzodiazepines Scrn (Negative) Urine Cocaine Screen (Negative) U Marijuana (THC) Screen (Negative) Ethyl Alcohol 434 H* ( - 10) mg/dL 11/26/21 11/26/21 11/26/21 Range/Units 03:05 03:05 03:05 WBC (4.5-11.0) X10^3/uL RBC (4.0-5.2) X10^6/uL Hgb (12.0-16.0) g/dL Hct (36-46) % MCV (80-100) fL MCH (26-34) PG MCHC (30-36) % RDW (11.6-14.8) % Plt Count (150-400) X10^3/uL Neut % (Auto) (50-75) % Lymph % (Auto) (25-40) % [place] % (Auto) (3-14) % Eos % (Auto) (2-4) % Baso % (Auto) (0-2) % Neut # (Auto) (2114-0170) /uL Lymph # (Auto) (6197-2031) /uL [place] # (Auto) (0-900) /uL Eos # (Auto) (0-450) /uL Baso # (Auto) (0-100) /uL Sodium (137-145) mmol/L Potassium (3.4-5.1) mmol/L Chloride (98-107) mmol/L Carbon Dioxide (22-32) mmol/L BUN (7-17) mg/dL Creatinine (0.52-1.04) mg/dL Estimated GFR (>60) mL/min BUN/Creatinine Ratio (6-22) Glucose (70-100) mg/dL Calcium (8.4-10.2) mg/dL Total Bilirubin (0.2-1.3) mg/dL AST (14-36) IU/L ALT (<35) IU/L Alkaline Phosphatase (38-126) U/L Total Creatine Kinase (30-135) U/L CK-MB (CK-2) CK-MB (CK-2) Rel Index Troponin I (0.01-0.034) ng/mL Total Protein (6.3-8.2) g/dL Albumin (3.5-5.0) g/dL Globulin (1.7-4.1) g/dL Albumin/Globulin Ratio (1.0-2.8) Urine Color Straw Urine Appearance Clear Urine pH 5.5 (4.5-8.0) Ur Specific [place] <=1.005 (1.000-1.035) Urine Protein Negative (Negative) Urine Glucose (UA) Negative (Negative) g/dL Urine Ketones Negative (NEGATIVE) Urine Occult Blood Trace-intact (Negative) Urine Nitrate Negative (Negative) Urine Bilirubin Negative (NEGATIVE) Urine Urobilinogen 0.2 (0.2) E.U./dL Ur Leukocyte Esterase Negative (NEGATIVE) Urine RBC None seen (0-5/HPF) Urine WBC None seen (0-5/HPF) Ur Squamous Epith Cells 1-5 /hpf (0-5/HPF) Urine Bacteria None seen (None) Ur Culture Indicated? Cult not indicated Micro UA Comment Microscopic normal Urine Test Negative (Negative) U Opiates 300ng/mL cut Negative (Negative) Ur Oxycodone Screen Negative (Negative) Urine Methadone Screen Negative (Negative) Ur Barbiturates Screen Negative (Negative) U Tricyclic Antidepress Negative (Negative) Ur Phencyclidine Scrn Negative (Negative) Ur Amphetamines Screen Negative (Negative) U Methamphetamines Scrn Negative (Negative) Ur MDMA Scrn (Ecstasy) Negative (Negative) U Benzodiazepines Scrn Negative (Negative) Urine Cocaine Screen Negative (Negative) U Marijuana (THC) Screen Negative (Negative) Ethyl Alcohol ( - 10) mg/dL Imaging Data CT scan - head: Radiologist's Impression: Preliminary report normal CT - cervical spine: Radiologist's Impression: Preliminary report no CT evidence of acute cervical spinal injury ECG Data Interpretation: Normal sinus rhythm rate 85 WA interval 182 QRS [address] changes no T-wave inversion MDM Narrative Medical decision making narrative: Patient is found to be severely intoxicated without signs of trauma. Head CT and CT cervical spine are negative. She has elevated liver enzymes but no elevated jaundice. Friend in the room states that she drinks significantly more than she leads on. I discussed with patient about going to detox and not stopping abruptly. She understands. She has a steady gait to the bathroom and back. She has clear speech. She is awake alert oriented asking appropriate questions. Her friend will take her home. Discharge Plan Departure Patient Disposition: Home Clinical Impression: Alcohol intoxication Instructions: DI for Alcohol Use Disorder, Drug and Alcohol Withdrawal Activity Restrictions/Additional Instructions: *You have been diagnosed with alcohol intoxication *What to do: At this time he likely passed out due to severe alcohol. I do recommend that he go to detox for stopping. Do not trend stop on your own it is extremely dangerous. Your liver enzymes are elevated and showing signs of damage. *Continue to take medications as directed *Follow up with your primary care provider in 2-3 days or call [phone] *Return to ER if you should have seizures, shaking, pain, persistent vomiting or any new, worsening or concerning symptoms Prescriptions: No Action atovstatin PO 0RF levothyroxine 25 mcg capsule 25 mcg PO DAILY 0RF ibuprofen 800 mg tablet 800 mg PO Q8H PRN (Reason: pain) Qty: 30 0RF oxycodone 5 mg tablet 5 mg PO Q4-6H PRN (Reason: pain) Qty: 30 0RF Referrals: Lena Mcfadden ARNP [Primary Care Provider] -
[2021-11-26 02:30] VITALS: BP 118/64; PULSE 86; RESP 23; O2SAT 88
[2021-11-26 03:00] VITALS: BP 82/47; PULSE 85; RESP 20; O2SAT 98
--- NOTE | 2021-11-26 03:13 | PC.NURSE ---
pt ambulatory to bathroom without assistance gait steady
[2021-11-26 03:17] LABS: UR Morphine/Opiate cutoff 300 Negative (Negative); Ur Creatinine Normal (Normal); Ur Specific Gravity Normal (Normal); Urine Amphetamines Negative (Negative); Urine Barbiturates Negative (Negative); Urine Cocaine Negative (Negative); Urine MDMA Negative (Negative); Urine Methamphetamines Negative (Negative); Urine Phencyclidine Negative (Negative); Urine Tetrahydrocannabinol Negative (Negative); Urine pH Normal (Normal)
[2021-11-26 03:18] LABS: Urine Benzodiazepines Negative (Negative); Urine Methadone Negative (Negative); Urine Oxycodone Negative (Negative); Urine Tricyclic Antidepressant Negative (Negative)
[2021-11-26 03:21] LABS: Appearance Urine UA CLEAR; Bilirubin Urine UA NEGATIVE (NEGATIVE); Glucose Urine UA NEGATIVE (Negative); Ketones Urine UA NEGATIVE (NEGATIVE); Leukocyte Esterase Urine UA NEGATIVE (NEGATIVE); Nitrite Urine UA NEGATIVE (Negative); Occult Blood Urine UA TRACE-INTACT (Negative); Protein Urine UA NEGATIVE (Negative); Specific Gravity Urine UA <=1.005 (1.000-1.035); Urobilinogen Urine UA 0.2 E.U./dL (0.2)
[2021-11-26 03:23] LABS: Color Urine UA Straw; Pregnancy Test Urine Negative (Negative); pH Urine UA 5.5 (4.5-8.0)
[2021-11-26 03:24] LABS: Bacteria Urine None Seen; Culture Indicated Urine Cult Not Indicated; RBC Urine None Seen (0-5/HPF); Squamous Epithelial Cell Urine 1-5 /HPF (0-5/HPF); Urine Comments Microscopic Normal; WBC Urine None Seen (0-5/HPF)
== END 2021-11-26 04:07 | disposition home or self-care (01) ==
PROVIDERS: Emergency Provider Emergency Medicine; PCP Nurse Practitioner Family
DX: F10.129 Alcohol abuse with intoxication, unspecified (principal); Y90.8 Blood alcohol level of 240 mg/100 ml or more; Z87.891 Personal history of nicotine dependence
CPT/HCPCS: 70450; 72125; 80053; 80305; 80320; 81001; 81025; 82550; 84484; 85025; 93005; 93010; 96360; 96361; 99284

== ENCOUNTER → 2022-06-20 11:10 | Outpatient (CLI) | payer OTHER, SELFPAY ==
[2019-06-22 20:51] VITALS: BMI 25.4
--- NOTE | 2022-06-20 | DI.MG.S_ITS ---
BILATERAL DIGITAL SCREENING MAMMOGRAM 3D/2D WITH CAD: 06/20/2022 CLINICAL: Routine screening. Family history of breast cancer. Comparison is made to exams dated: 04/11/2021 mammogram, 04/06/2020 mammogram, 08/27/2018 mammogram, 06/20/2018 mammogram, and 02/16/2016 mammogram - [facility]. Both breasts are heterogeneously dense, which may obscure small masses (category c / 51-75% glandular tissue). Current study was also evaluated with a Computer Aided Detection (CAD) system. There are benign post operative findings and biopsy clip in the left breast. No significant masses, calcifications, or other findings are seen in either breast. There has been no significant interval change. IMPRESSION: BENIGN There is no mammographic evidence of malignancy. A 1 year screening mammogram is recommended. Based on Tyrer-Cuzick model (a risk assessment model), the patient's lifetime risk is 43.8% and her 10 year risk is 9.7%. If a patient has an elevated risk, a more comprehensive evaluation should be considered and/or a referral to a genetic counselor. The [place] [employer], [employer], and NCCN Guidelines advise the consideration of Breast MRI as an adjunct to screening mammography in patients whose Lifetime risk to develop breast cancer is 20% or higher. This exam was interpreted at Station ID: [id number]. NOTE: For mammograms, a report in lay terms will be sent to the patient. Approximately 15% of breast malignancies will not be visualized mammographically. In the management of a palpable breast mass, a negative mammogram must not discourage biopsy of a clinically suspicious lesion. Electronically Signed By: Gildardo colon/zachariah:06/20/2022 13:47:26 copy to: Lena Mcfadden letter sent: Normal Exam ACR BI-RADS Category 2: Benign Finding(s) 3342F
== END ==
PROVIDERS: PCP Internal Medicine; Referring Provider Internal Medicine; Visit Provider Internal Medicine
DX: Z12.31 Encounter for screening mammogram for malignant neoplasm of breast (principal); Z80.3 Family history of malignant neoplasm of breast
CPT/HCPCS: 77063; 77067

== ENCOUNTER → 2023-02-07 07:07 | Outpatient (CLI) | payer OTHER, SELFPAY ==
[2019-06-22 20:51] VITALS: BMI 25.4
== END ==
PROVIDERS: PCP Internal Medicine; Visit Provider Nurse Practitioner Family
DX: R30.0 Dysuria (principal)
CPT/HCPCS: 87077; 87086; 87186; 87210

== ENCOUNTER → 2023-10-22 13:57 | Outpatient (CLI) | payer OTHER, SELFPAY ==
[2019-06-22 20:51] VITALS: BMI 25.4
--- NOTE | 2023-10-22 13:59 | DI.MG.S_ITS ---
BILATERAL DIGITAL SCREENING MAMMOGRAM 3D/2D WITH CAD: 10/22/2023 CLINICAL: Routine screening. Family history of breast cancer. Comparison is made to exams dated: 06/20/2022 mammogram, 04/11/2021 mammogram, and 04/06/2020 mammogram - [facility]. There are scattered areas of fibroglandular density in both breasts (category b / 25%-50% glandular tissue). Current study was also evaluated with a Computer Aided Detection (CAD) system. There is an asymmetry in the left breast middle depth central to the nipple seen on the craniocaudal view only. There also is an asymmetry in the left breast posterior depth lateral region seen on the craniocaudal view only. No other significant masses, calcifications, or other findings are seen in either breast. IMPRESSION: INCOMPLETE: NEEDS ADDITIONAL IMAGING EVALUATION The asymmetry in the left breast middle depth central to the nipple seen on the craniocaudal view only is indeterminate. Additional views with possible ultrasound are recommended. The asymmetry in the left breast posterior depth lateral region seen on the craniocaudal view only is indeterminate. Additional views with possible ultrasound are recommended. Based on Tyrer-Cuzick model (a risk assessment model), the patient's lifetime risk is 31.4% and her 10 year risk is 6.8%. If a patient has an elevated risk, a more comprehensive evaluation should be considered and/or a referral to a genetic counselor. The [place] [employer], [employer], and NCCN Guidelines advise the consideration of Breast MRI as an adjunct to screening mammography in patients whose Lifetime risk to develop breast cancer is 20% or higher. This exam was interpreted at Station ID: [id number]. NOTE: For mammograms, a report in lay terms will be sent to the patient. Approximately 15% of breast malignancies will not be visualized mammographically. In the management of a palpable breast mass, a negative mammogram must not discourage biopsy of a clinically suspicious lesion. Electronically Signed By: Yen doyle/:10/22/2023 15:40:43 copy to: Lena Mcfadden letter sent: Additional Imaging Needed ACR BI-RADS Category 0: Incomplete 3340F
== END ==
PROVIDERS: PCP Internal Medicine; Referring Provider Internal Medicine; Visit Provider Internal Medicine
DX: Z12.31 Encounter for screening mammogram for malignant neoplasm of breast (principal); Z80.3 Family history of malignant neoplasm of breast; R92.323 Mammographic fibroglandular density, bilateral breasts
CPT/HCPCS: 77063; 77067

== ENCOUNTER → 2023-11-15 13:32 | Outpatient (CLI) | payer OTHER, SELFPAY ==
[2019-06-22 20:51] VITALS: BMI 25.4
--- NOTE | 2023-11-15 13:33 | DI.MG.S_ITS ---
UNILATERAL LEFT DIGITAL DIAGNOSTIC MAMMOGRAM 3D/2D WITH ADDITIONAL VIEWS: 11/15/2023 CLINICAL: Additional evaluation requested from prior study. Comparison is made to exams dated: 10/22/2023 mammogram, 06/20/2022 mammogram, 04/11/2021 mammogram, and 04/06/2020 mammogram - [facility]. There are scattered areas of fibroglandular density in the left breast (category b / 25%-50% glandular tissue). The asymmetries seen on recent screening mammogram did not persist with additional imaging and is consistent with superimposition of normal breast tissue. There are benign post operative changes and a biopsy clip seen in the left breast. No significant masses, calcifications, or other findings are seen in the breast. IMPRESSION: BENIGN Superimposition of normal breast tissue. No mammographic evidence of malignancy. A 1 year screening mammogram is recommended. Findings and recommendations were conveyed to the patient during today's evaluation. Based on Tyrer-Cuzick model (a risk assessment model), the patient's lifetime risk is 31.3% and her 10 year risk is 7.1%. If a patient has an elevated risk, a more comprehensive evaluation should be considered and/or a referral to a genetic counselor. The [employer] [employer], [employer], and NCCN Guidelines advise the consideration of Breast MRI as an adjunct to screening mammography in patients whose Lifetime risk to develop breast cancer is 20% or higher. This exam was interpreted at Station ID: [id number]. NOTE: For mammograms, a report in lay terms will be sent to the patient. Approximately 15% of breast malignancies will not be visualized mammographically. In the management of a palpable breast mass, a negative mammogram must not discourage biopsy of a clinically suspicious lesion. Electronically Signed By: Deepa Corey M.D., PH.D eb/:11/15/2023 13:54:15 copy to: Lena Mcfadden letter sent: Normal Exam ACR BI-RADS Category 2: Benign Finding(s) 3342F
== END ==
PROVIDERS: PCP Internal Medicine; Referring Provider Internal Medicine; Visit Provider Internal Medicine
DX: R92.8 Other abnormal and inconclusive findings on diagnostic imaging of breast (principal); R92.322 Mammographic fibroglandular density, left breast
CPT/HCPCS: 77065; G0279

== ENCOUNTER 2024-03-26 04:42 | Emergency (ER) | payer OTHER, SELFPAY ==
[2019-06-22 20:51] VITALS: BMI 25.4
[2024-03-26 05:01] VITALS: BP 119/73; PULSE 83; RESP 16; TEMP 36.1; O2SAT 99; BMI 22.0
[2024-03-26 05:12] LABS: Appearance Urine UA CLEAR; Bilirubin Urine UA NEGATIVE (NEGATIVE); Color Urine UA YELLOW; Glucose Urine UA NEGATIVE (Negative); Ketones Urine UA NEGATIVE (NEGATIVE); Leukocyte Esterase Urine UA NEGATIVE (NEGATIVE); Nitrite Urine UA NEGATIVE (Negative); Occult Blood Urine UA 3+ (Negative); Protein Urine UA 1+ (Negative); pH Urine UA 5.5 (4.5-8.0)
[2024-03-26 05:24] LABS: Bacteria Urine None Seen; Culture Indicated Urine Cult Not Indicated; RBC Urine 5-10/HPF (0-5/HPF); Squamous Epithelial Cell Urine 0-1 /HPF (0-5/HPF); Urine Volume 10mL (spun); WBC Urine None Seen (0-5/HPF)
--- NOTE | 2024-03-26 05:36 | ED.FEMALEGU ---
HPI - Female Genitourinary General Chief complaint: Urogenital-Female Stated complaint: bladder infection Time Seen by Provider: 03/26/24 04:45 Source: patient Mode of arrival: Ambulatory History of Present Illness HPI Narrative: 48-year-old female presents out of concern that she may have a bladder infection. Since last night she was had burning with urination and frequency. She states that she would like to ?get ahead of things? and is here for evaluation. Denies nausea, vomiting, flank pain, fevers, chills. Related Data Home Medications Medication Instructions Recorded Confirmed levothyroxine 25 mcg capsule 25 mcg PO DAILY 02/11/19 02/07/23 atovstatin PO 09/14/20 02/07/23 Previous Rx's Medication Instructions Recorded ibuprofen 800 mg tablet 800 mg PO Q8H PRN pain #30 tabs 01/31/21 oxycodone 5 mg tablet 5 mg PO Q4-6H PRN pain #30 tabs 06/25/21 phenazopyridine 200 mg tablet 200 mg PO TID 6 doses #6 tabs 02/07/23 (Pyridium) cephalexin 500 mg capsule 500 mg PO Q12H #10 caps 03/26/24 Allergies Allergy/AdvReac Type Severity Reaction Status Date / Time No Known Drug Allergies Allergy Verified 02/07/23 08:02 Patient History Medical History UTI (urinary tract infection) Fractures Chicken pox Anemia (~1996) Surgical History History of hysterectomy for benign disease (~06/2019) Anesthesia History of delivery (~05/2006) History of lumpectomy (~08/2010) Family History Father Cancer tobacco type: smokeless tobacco alcohol intake frequency: 0-2 drinks per day Substance Use Type: does not use Exam Initial Vital Signs Initial Vital Signs: Vital Signs Temperature 97 F L 03/26/24 05:01 Pulse Rate 83 03/26/24 05:01 Respiratory Rate 16 03/26/24 05:01 Blood Pressure 119/73 03/26/24 05:01 Pulse Oximetry 99 03/26/24 05:01 Oxygen Delivery Method Room Air 03/26/24 05:01 Const: Awake, alert, no acute distress, nontoxic appearing Skin: Warm, Dry, intact, no rashes Neuro: AO x3, CN II-XII grossly intact, moves all extremities Course Orders Ordered: ED Orders 03/26/24 05:08 UA Complete [Urinalysis and Microscopic] Stat Vital Signs Vital signs: Vital Signs - 8 hr 03/26/24 05:01 Temperature 97 F L Pulse Rate 83 Respiratory Rate 16 Blood Pressure 119/73 Pulse Oximetry 99 Oxygen Delivery Method Room Air MDM - Female Genitourinary Differential Diagnosis Differential diagnosis: Likely urinary tract infection, bacterial vaginosis and cystitis Lab Data Labs: Lab Results 03/26/24 Range/Units 02:40 Urine Color Yellow Urine Appearance Clear Urine pH 5.5 (4.5-8.0) Ur Specific [place] 1.010 (1.000-1.035) Urine Protein 1+ H (Negative) Urine Glucose (UA) Negative (Negative) g/dL Urine Ketones Negative (NEGATIVE) Urine Occult Blood 3+ H (Negative) Urine Nitrate Negative (Negative) Urine Bilirubin Negative (NEGATIVE) Urine Urobilinogen 1.0 (0.2) E.U./dL Ur Leukocyte Esterase Negative (NEGATIVE) Urine RBC 5-10/hpf H (0-5/HPF) Urine WBC None seen (0-5/HPF) Ur Squamous Epith Cells 0-1 /hpf (0-5/HPF) Urine Bacteria None seen (None) Ur Culture Indicated? Cult not indicated Vol Urine Centrifuged 10ml (spun) MDM Narrative Medical decision making narrative: Well-appearing patient with frequency and dysuria. Urinalysis negative for any evidence of infection. Since patient was symptomatic she was given a ?just in case? prescription. She was counseled to increase her water intake and monitor her symptoms. If she is still symptomatic after 48 hours then she may take the prescription to see if this improves her symptoms. Discharge Plan Departure Patient Disposition: Home Clinical Impression: Dysuria Activity Restrictions/Additional Instructions: Your urine did not show any obvious signs of infection. There were small amount of red blood cells present, but no white blood cells or bacteria present indicate an active infection. If you continue to have symptoms over the next several days then I have given you a paper prescription that you can fill at your pharmacy of choice. In the meantime I recommend drinking lots of fluids to try and clear your kidneys and bladder. Follow up as needed with your primary care doctor. Prescriptions: New cephalexin 500 mg capsule 500 mg PO Q12H Qty: 10 0RF No Action atovstatin PO phenazopyridine [Pyridium] 200 mg tablet 200 mg PO TID 0 Days Qty: 6 0RF levothyroxine 25 mcg capsule 25 mcg PO DAILY ibuprofen 800 mg tablet 800 mg PO Q8H PRN (Reason: pain) Qty: 30 0RF oxycodone 5 mg tablet 5 mg PO Q4-6H PRN (Reason: pain) Qty: 30 0RF Referrals: Loida Gold ARNP [Primary Care Provider] - Stand Alone Forms: Patient Portal/API
[2024-03-26 05:53] VITALS: BP 125/75; PULSE 65; RESP 17; TEMP 36.9; O2SAT 97
== END 2024-03-26 05:55 | disposition home or self-care (01) ==
PROVIDERS: Emergency Provider Emergency Medicine; PCP Internal Medicine
DX: R30.0 Dysuria (principal)
CPT/HCPCS: 81001; 99281; 99282

== ENCOUNTER → 2024-11-25 15:43 | Outpatient (CLI) | payer OTHER, SELFPAY ==
[2019-06-22 20:51] VITALS: BMI 25.4
--- NOTE | 2024-11-25 15:45 | DI.MG.S_ITS ---
MM screening mammo BI: 11/25/2024. BI-RADS: 2 CLINICAL: 49-year old female for bilateral screening mammogram. Tyrer-Cuzick lifetime risk of 5.5%. No personal or first-degree family history of breast cancer. Current reported family history of breast cancer: maternal grandmother. The patient had a prior left breast biopsy. PRIOR EXAMS 11/15/2023, 10/22/2023, 06/20/2022, 04/11/2021, 04/06/2020, 02/18/2019, 08/27/2018, 07/23/2018, 06/20/2018, 03/18/2017, 02/16/2016, 02/08/2015, 01/24/2015. MAMMOGRAPHY TECHNIQUE: 2D and 3D (tomosynthesis) digital mammographic views obtained, with additional images as needed for full coverage. Current study was also evaluated with a Computer Aided Detection (CAD) system. DENSITY B. There are scattered areas of fibroglandular density. MAMMOGRAPHY FINDINGS Right: No suspicious mass, asymmetry, microcalcification, or other abnormality seen. No significant change from comparison. Left: Biopsy marker present on the left. There are no suspicious masses, calcifications, or other findings in the breast. No significant change from comparison. IMPRESSION: Right * No evidence of malignancy. Left * No evidence of malignancy with benign findings. RECOMMENDATIONS Bilateral * Annual screening mammography. OVERALL ASSESSMENT CATEGORY BI-RADS-2: Benign. The [employer] recommends annual screening mammography beginning at age 40 for women with average risk of breast cancer. ELECTRONICALLY SIGNED: Rhiannon Winter M.D. on 11/25/2024 at 04:46:05 PM PT Interpreting Station ID: [id number]
== END ==
LOC: MAMMO 15:44
PROVIDERS: PCP Internal Medicine; Referring Provider Internal Medicine; Visit Provider Internal Medicine
DX: Z12.31 Encounter for screening mammogram for malignant neoplasm of breast (principal); Z80.3 Family history of malignant neoplasm of breast
CPT/HCPCS: 77063; 77067

== ENCOUNTER 2024-12-15 07:14 | Emergency (ER) | payer OTHER, SELFPAY ==
[2019-06-22 20:51] VITALS: BMI 25.4
[2024-12-15 07:28] VITALS: BP 109/66; PULSE 78; RESP 18; TEMP 36.5; O2SAT 100; BMI 23.2
--- NOTE | 2024-12-15 07:34 | DI.RAD.S_ITS ---
PROCEDURE: XR ANKLE RT MIN 3V INDICATIONS: injury. pain TECHNIQUE: 3 views of the ankle were acquired. COMPARISON: None. FINDINGS: Bones: No acute fractures or dislocations. Small corticated ossification adjacent to the distal fibular tip is likely the sequela of remote prior trauma. Ankle mortise is normally aligned. No suspicious bony lesions. Soft tissues: No tibiotalar joint effusion. Achilles tendon appears normal. IMPRESSION: No acute osseous abnormality. If there is continued clinical concern or persistent symptoms, repeat radiographs or cross-sectional imaging (e.g. CT, MRI) may be helpful for further evaluation. Approved by: Jonel Key M.D. on 12/15/2024 at 8:01
--- NOTE | 2024-12-15 07:50 | ED.LOWEXIN ---
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 Has right ankle and foot pain since last night. No other injuries recalled. She has not taken any medications for the pain. Related Data Home Medications Medication Instructions Recorded Confirmed levothyroxine 25 mcg capsule 25 mcg PO DAILY 02/11/19 02/07/23 atovstatin PO 09/14/20 02/07/23 Previous Rx's Medication Instructions Recorded ibuprofen 800 mg tablet 800 mg PO Q8H PRN pain #30 tabs 01/31/21 oxycodone 5 mg tablet 5 mg PO Q4-6H PRN pain #30 tabs 06/25/21 phenazopyridine 200 mg tablet 200 mg PO TID 6 doses #6 tabs 02/07/23 (Pyridium) cephalexin 500 mg capsule 500 mg PO Q12H #10 caps 03/26/24 Allergies Allergy/AdvReac Type Severity Reaction Status Date / Time No Known Drug Allergies Allergy Verified 12/15/24 07:33 Patient History Medical History UTI (urinary tract infection) Fractures Chicken pox Anemia (~1996) Surgical History History of hysterectomy for benign disease (~06/2019) Anesthesia History of delivery (~05/2006) History of lumpectomy (~08/2010) Family History Father Cancer Social History household members: spouse and children Smoking Status: Current some day smoker Smoking Status: Current some day smoker tobacco type: smokeless tobacco alcohol intake frequency: 0-2 drinks per day Exam Narrative Exam Narrative: GENERAL: Well-developed patient, in mild distress. HEAD: Atraumatic. Normocephalic. EYES: Pupils equal round and reactive. Extraocular motions intact. No scleral icterus. No injection or drainage. ENT: Nose without bleeding, purulent drainage. Throat without erythema, tonsillar hypertrophy or exudate. Airway patent. NECK: Trachea midline. Non tender CARDIOVASCULAR: Regular rate and rhythm without murmurs, gallops, or rubs. RESPIRATORY: Clear to auscultation. Breath sounds equal bilaterally. No wheezes, rales, or rhonchi. GASTROINTESTINAL: Abdomen soft, non-tender, nondistended. EXTREMITIES: No edema or joint tenderness. No gross deformity, no significant swelling or tenderness to right ankle lateral or medial malleolar, no tenderness at base of lateral right foot metatarsal, some tenderness mid foot dorsal, without redness or skin changes, no abrasions or swelling or crepitance. No toe injuries obvious. BACK: Nontender without deformity or crepitance. No flank tenderness. NEURO: AOx3. Motor functions grossly nonfocal SKIN: No rash or erythema of visible areas Initial Vital Signs Initial Vital Signs: Vital Signs Temperature 97.7 F 12/15/24 07:28 Pulse Rate 78 12/15/24 07:28 Respiratory Rate 18 12/15/24 07:28 Blood Pressure 109/66 12/15/24 07:28 Pulse Oximetry 100 12/15/24 07:28 Oxygen Delivery Method Room Air 12/15/24 07:28 Course Orders Ordered: Discontinued Medications Ibuprofen (Ibuprofen 400 Mg Tablet) 400 mg PO NOW ONE Stop: 12/15/24 07:49 Last Admin: 12/15/24 08:19 Dose: 400 mg Documented By: ELMA Vital Signs Vital signs: Vital Signs - 8 hr 12/15/24 07:28 Temperature 97.7 F Pulse Rate 78 Respiratory Rate 18 Blood Pressure 109/66 Pulse Oximetry 100 Oxygen Delivery Method Room Air MDM - Extremity Injury (Lower) Imaging Data Extremity x-ray #1: Radiologist's Impression: [address] [address] XRay Report Signed Patient: Will Lee MR#: [id number] : 1975 Acct:[id number] Age/Sex: 49 / F Date of Service: 12/15/24 Loc: ED Accession Number: [id number] Procedure: XR foot RT min 3V Ordering Provider: Aleksey Mccracken MD PROCEDURE: XR FOOT RT MIN 3V INDICATIONS: mid dorsal foot pain after twist TECHNIQUE: 3 views of the foot were acquired. COMPARISON: None. FINDINGS: Bones: No acute fractures or dislocations. No suspicious bony lesions. Soft tissues: Mild nonspecific soft tissue edema. IMPRESSION: No acute osseous abnormality. If there is continued clinical concern or persistent symptoms, repeat radiographs or cross-sectional imaging (e.g. CT, MRI) may be helpful for further evaluation. Approved by: Jonel Key M.D. on 12/15/2024 at 8:48 Extremity x-ray #2: Radiologist's Impression: [address] [address] XRay Report Signed Patient: Will Lee MR#: [id number] : 1975 Acct:[id number] Age/Sex: 49 / F Date of Service: 12/15/24 Loc: ED Accession Number: [id number] Procedure: XR ankle RT min 3V Ordering Provider: Aleksey Mccracken MD PROCEDURE: XR ANKLE RT MIN 3V INDICATIONS: injury. pain TECHNIQUE: 3 views of the ankle were acquired. COMPARISON: None. FINDINGS: Bones: No acute fractures or dislocations. Small corticated ossification adjacent to the distal fibular tip is likely the sequela of remote prior trauma. Ankle mortise is normally aligned. No suspicious bony lesions. Soft tissues: No tibiotalar joint effusion. Achilles tendon appears normal. IMPRESSION: No acute osseous abnormality. If there is continued clinical concern or persistent symptoms, repeat radiographs or cross-sectional imaging (e.g. CT, MRI) may be helpful for further evaluation. Approved by: Jonel Key M.D. on 12/15/2024 at 8:01 [facility] Narrative Medical decision making narrative: 49-year-old female with ankle rolling type injury to the right ankle at home last night, bumped her head, not taking blood thinner medications, no nausea or vomiting or headache, no loss of consciousness. On examination does not seem to actually have much tenderness right ankle medial or lateral malleolus. Screening x-ray right ankle ordered from triage. More tenderness on examination toward the dorsal foot, not at base of the lateral 5th metatarsal however. We will additionally order right foot x-ray series. Oral dose ibuprofen given. X-ray series right ankle and right foot showed no acute changes, see radiology reports. Patient has home crutches to use if needed, was ambulatory at time of discharge. DC home. FU with PCP advised. Discharge Plan Departure Patient Disposition: Home Clinical Impression: Right ankle strain, Right foot strain Activity Restrictions/Additional Instructions: Right ankle twist like injury last night, more tenderness in the dorsum of the right foot then along the lateral or medial aspect of the right ankle joint. X-ray studies of the right ankle joint as well as the right foot showed no obvious fracture. It is possible have soft tissue injuries. Consider nonweightbearing with use of crutches for the next 2-3 days. Ice and elevation and rest. Use [id number] ibuprofen as needed for pain and control of inflammation. Recheck with your regular doctor later this week if symptoms persist. Return to this/nearest emergency department for any change worsening symptoms or any concerns prior. Prescriptions: No Action atovstatin PO phenazopyridine [Pyridium] 200 mg tablet 200 mg PO TID 0 Days Qty: 6 0RF levothyroxine 25 mcg capsule 25 mcg PO DAILY cephalexin 500 mg capsule 500 mg PO Q12H Qty: 10 0RF ibuprofen 800 mg tablet 800 mg PO Q8H PRN (Reason: pain) Qty: 30 0RF oxycodone 5 mg tablet 5 mg PO Q4-6H PRN (Reason: pain) Qty: 30 0RF Referrals: Loida Gold ARNP [Primary Care Provider] - Stand Alone Forms: Patient Portal/API/Survey
[2024-12-15] MEDS: IBUPROFEN 400 MG TABLET PO (08:19)
== END 2024-12-15 09:15 | disposition home or self-care (01) ==
PROVIDERS: Emergency Provider Emergency Medicine; PCP Internal Medicine
DX: S96.911A Strain of unspecified muscle and tendon at ankle and foot level, right foot, initial encounter (principal); W01.198A Fall on same level from slipping, tripping and stumbling with subsequent striking against other object, initial encounter; Y92.002 Bathroom of unspecified non-institutional (private) residence as the place of occurrence of the external cause
CPT/HCPCS: 73610; 73630; 99283